=== PATIENT | female | born 1950 | race Caucasian/White ===

== ENCOUNTER 2021-10-01 14:16 | Outpatient (CLI) | payer MEDICARE, SELFPAY | END 2021-10-01 14:17 | disposition home or self-care (01) | LOC: INJ CL 14:17 | PROVIDERS: PCP Family Medicine; Visit Provider Family Medicine | DX: M17.11 Unilateral primary osteoarthritis, right knee (principal); M25.561 Pain in right knee | CPT/HCPCS: 64454 ==

== ENCOUNTER 2021-10-14 17:41 | Outpatient (REF) | payer MEDICARE, SELFPAY ==
[2021-10-14 20:12] LABS: SARS PCR* Negative SARS-CoV-2 (Negative)
== END 2021-10-14 17:42 | disposition home or self-care (01) ==
LOC: NPINS 17:41
PROVIDERS: PCP Family Medicine; Visit Provider Family Medicine
DX: Z20.822 Contact with and (suspected) exposure to COVID-19 (principal)
CPT/HCPCS: 87635

== ENCOUNTER 2021-10-15 11:56 | Outpatient (CLI) | payer MEDICARE, SELFPAY | END 2021-10-15 11:57 | disposition home or self-care (01) | LOC: INJ CL 11:57 | PROVIDERS: PCP Family Medicine; Visit Provider Family Medicine | DX: M17.11 Unilateral primary osteoarthritis, right knee (principal); G89.29 Other chronic pain; M25.561 Pain in right knee | CPT/HCPCS: 64624; J2250; J2405; J3010 ==

== ENCOUNTER 2022-07-23 14:11 | Outpatient (CLI) | payer MEDICARE, SELFPAY | END 2022-07-23 14:12 | disposition home or self-care (01) | PROVIDERS: PCP Family Medicine; Visit Provider Emergency Medicine Emergency Medical Services | DX: R06.09 Other forms of dyspnea (principal) | CPT/HCPCS: A0998 ==

== ENCOUNTER 2022-08-26 17:17 | Emergency (ER) | payer MEDICARE, SELFPAY ==
[2022-08-26 17:32] VITALS: BP 125/80; PULSE 64; RESP 18; TEMP 36.5; O2SAT 94; BMI 37.8
--- NOTE | 2022-08-26 17:57 | ED_ITS ---
HPI - General Adult General Chief complaint: Chest Pain Stated complaint: Burning in Chest Time Seen by Provider: 08/26/22 17:20 Source: patient Mode of arrival: ambulatory Limitations: no limitations History of Present Illness HPI narrative: 71-year-old female coming in today with continued chest burning. Patient was seen in the ER 5 days ago where a thorough workup was done since she was diagnosed with probable GERD and anxiety. She states that since then she has been watching which she has been eating and in the, she fine certain foods cause her symptoms to flare up and Tums cause her symptoms to improve. Today she wanted to see where her ?baseline was at? so she did not taking Tums and she felt significant chest burning that radiated up and down the entire chest and into her back. This caused her significant anxiety, she states that she got a hot flash, and so she came in for evaluation. She states that she is already feeling better. Patient states that she cannot take any PPIs because they cause depression for her. So she has been again, treating her symptoms with Tums which again, has been helping. She is also concerned because her sister had a heart attack and she presented with the initial symptoms of reflux. She believes this is likely was causing her anxiety. Her chest burning is not associated with physical activity. She denies fevers or chills. No nausea or vomiting. She is also quite concerned because she feels like she needs an upper GI, however, her doctor can see her until the end of the month. Related Data Home Medications Medication Instructions Recorded Confirmed blood sugar diagnostic (Contour #10 ea 09/09/21 09/09/21 Next Test Strips) cyanocobalamin (vitamin B-12) 1,000 mcg PO QDAY 09/09/21 09/09/21 1,000 mcg tablet hydrochlorothiazide 12.5 mg tablet 12.5 mg PO QDAY 09/09/21 09/09/21 lisinopril 20 mg tablet 20 mg PO QDAY 09/09/21 09/09/21 multivitamin (Multiple Vitamins 1 tab PO QDAY 09/09/21 09/09/21 tablet) omega-3 fatty acids 1,000 mg 1,000 mg PO QDAY 09/09/21 09/09/21 capsule Previous Rx's Medication Instructions Recorded sucralfate 1 gram tablet (Carafate) 1 g PO QID PRN #30 tabs 08/26/22 Allergies Allergy/AdvReac Type Severity Reaction Status Date / Time iodine Allergy Intermediate Hives, sob Verified 07/23/22 15:26 amoxicillin Allergy Unknown Rash Verified 07/23/22 15:26 Review of Systems Status of ROS: Reports: 10 or more systems reviewed and unremarkable except as noted in History and below [facility] Medical History Diabetes type 2, controlled ?E11.9 - Type 2 diabetes mellitus without complications (ICD-10) Abdominal hernia ?K46.9 - Unspecified abdominal hernia without obstruction or gangrene (ICD- 10) Thyroid disease ?E07.9 - Disorder of thyroid, unspecified (ICD-10) Hypertension ?I10 - Essential (primary) hypertension (ICD-10) Upper respiratory tract infection ?J06.9 - Acute upper respiratory infection, unspecified (ICD-10) Rash ?R21 - Rash and other nonspecific skin eruption (ICD-10) Surgical History H/O section ?Z98.891 - History of uterine scar from previous surgery (ICD-10) History of hernia repair ?Z98.890 - Other specified postprocedural states (ICD-10) ?Z87.19 - Personal history of other diseases of the digestive system (ICD-10) Status post intraocular lens implant ?Z96.1 - Presence of intraocular lens (ICD-10) Family History Father Throat cancer Brother Stroke Maternal Grandmother Stroke Mother Rupture, aorta Social History Smoking Status: Former smoker Do you use any of these nicotine containing products: None Second hand tobacco smoke exposure: No How often do you have a drink containing alcohol: monthly or less AUDIT-C Alcohol total score: 1 Non-prescribed substance use: denies use Exam Narrative: Exam Narrative: Well-nourished well-developed patient in no acute distress. Alert and oriented. Answers questions appropriately. Mood and affect are appropriate. Thoughts are goal oriented and rational. No tangential or magical thinking noted. Patient speaks in full sentences without needing to catch her breath. HEENT: Normocephalic atraumatic. Pupils are equally round reactive to light. Extraocular muscles are intact. Conjunctivae are moist without any icterus noted. Moist mucous membranes. Neck is soft. Cardiovascular: Heart is regular rate and rhythm S1 and S2 are present without any murmurs. Lungs: Clear to auscultation bilaterally no wheezes rhonchi or rales are appreciated. Patient takes deep breaths without any discomfort. Abdomen: Soft and nontender nondistended with normal bowel sounds. No guarding or rebound. No masses or organomegaly appreciated. Extremities: Bilateral lower extremities are without edema. Normal DP and PT pulses. Skin: Well perfused without any obvious rashes. Const: Vital Signs, click to edit/add: Vital Signs - 24 hr 08/26/22 17:32 Temperature 97.7 F Pulse Rate [Right Pulse Oximeter] 64 Respiratory Rate 18 Blood Pressure [Ri ght Upper Arm] 125/80 Pulse Oximetry 94 Oxygen Delivery Me thod Room Air Course Course Hospital Course: We did repeat an EKG today which shows normal sinus rhythm with a pulse of 66 however read by me. No significant changes from her EKG 5 days ago. We also did a point of care troponin which was within normal limits. We discussed further testing and the patient felt that it was unnecessary if the EKG and troponin were normal. Patient is quite convinced that her symptoms are due to reflux and anxiety as well. Vital Signs Vital signs: Initial Vital Signs Temperature 97.7 F 08/26/22 17:32 Temperature Source Temporal Artery Scan 08/26/22 17:32 Pulse Rate 64 08/26/22 17:32 Respiratory Rate 18 08/26/22 17:32 Blood Pressure 125/80 08/26/22 17:32 Blood Pressure Mean 95 08/26/22 17:32 Blood Pressure Position Sitting 08/26/22 17:32 Pulse Oximetry 94 08/26/22 17:32 Oxygen Delivery Method Room Air 08/26/22 17:32 Vital Signs Temperature 97.7 F 08/26/22 17:32 Pulse Rate 64 08/26/22 17:32 Respiratory Rate 18 08/26/22 17:32 Blood Pressure 125/80 08/26/22 17:32 Pulse Oximetry 94 08/26/22 17:32 Oxygen Delivery Method Room Air 08/26/22 17:32 Temperature 97.7 F 08/26/22 17:32 Pulse Rate 64 08/26/22 17:32 Respiratory Rate 18 08/26/22 17:32 Blood Pressure 125/80 08/26/22 17:32 Pulse Oximetry 94 08/26/22 17:32 Oxygen Delivery Method Room Air 08/26/22 17:32 Medical Decision Making MDM Narrative Medical decision making narrative: 71-year-old female with GERD. At this time, patient will be sent home with Carafate. She has a call in to her doctor to see if she can be seen earlier. We discussed returning to the ER for worsening symptoms that are no longer ameliorated with Tums or Carafate. Patient was in agreement and had no other questions. Medical Records Medical records reviewed: Yes I reviewed the patient's medical records ECG Data Attestation: I personally reviewed and interpreted this ECG as follows: Discharge Plan Discharge Clinical Impression: Gastroesophageal reflux disease Patient Disposition: Home, Self-Care Condition: Stable Additional Instructions: Follow-up with your primary care provider as scheduled. Start taking Carafate as needed for reflux symptoms. Would also consider a different PPI such as pantoprazole or Nexium which can be purchased [id number]. Recommend cutting down on coffee, food with citric acid such as oranges and adan, chocolate and tomatoes. Prescriptions: New sucralfate [Carafate] 1 gram tablet 1 g PO QID PRNQty: 30 0RF No Action omega-3 fatty acids 1,000 mg capsule 1,000 mg PO QDAY multivitamin [Multiple Vitamins] Tablet 1 tab PO QDAY hydrochlorothiazide 12.5 mg tablet 12.5 mg PO QDAY Patient Comments: TAKE ONE TABLET BY MOUTH ONE TIME DAILY lisinopril 20 mg tablet 20 mg PO QDAY Patient Comments: TAKE ONE TABLET BY MOUTH ONE TIME DAILY (DME) Contour Next Test Strips Strip See Rx Instructions .ROUTE .MEDSUPPLY Qty: 10 Patient Comments: use to Test 3 times per day Rx Instructions: As directed cyanocobalamin (vitamin B-12) 1,000 mcg tablet 1,000 mcg PO QDAY Patient Comments: Take 1 Tablet (1,000 mcg) by mouth once daily. Follow Up/Referrals: Eliana Guaman MD [Primary Care Provider] - Stand Alone Forms: [facility] Info Instructions
[2022-08-26 18:00] VITALS: BP 134/75; PULSE 61; RESP 16; O2SAT 96
[2022-08-26 18:18] LABS: Troponin, Point-of-Care* 0.01 ng/ml (0.01-0.04)
[2022-08-26] MEDS: SUCRALFATE 1 GM TABLET PO (18:32)
== END 2022-08-26 18:40 | disposition home or self-care (01) ==
LOC: ED 18:29
PROVIDERS: Emergency Provider Family Medicine; PCP Family Medicine
DX: K21.9 Gastro-esophageal reflux disease without esophagitis (principal)
CPT/HCPCS: 84484; 99283; 99284; A9270

== ENCOUNTER 2022-09-01 16:45 | Emergency (ER) | payer MEDICARE, SELFPAY ==
[2022-09-01 16:57] VITALS: BP 142/76; PULSE 71; RESP 16; TEMP 36.4; O2SAT 97; BMI 37.8
--- NOTE | 2022-09-01 17:30 | ED.ALLEREA ---
HPI - Allergic Reaction General Time Seen by Provider: 17:30 Date Seen: 09/01/22 Chief complaint: Allergic Reaction Stated complaint: Heartburn, trouble breathing Time Seen by Provider: 09/01/22 16:52 Source: patient, RN notes reviewed and old records reviewed Mode of arrival: ambulatory Limitations: no limitations History of Present Illness HPI narrative: Gabby is a very pleasant 71-year-old female with history of GERD, abdominal surgery with mesh, osteoarthritis of the knees who comes to the emergency room for evaluation of possible allergic reaction to Pepcid. Patient notes that the end of June she started experiencing heartburn out of the blue. Thirty years ago she had an episode where she had hard time tolerating a specific kind of soup and was told that it was heartburn. She was placed on omeprazole but discontinued because it made her feel depressed. Patient was seen in the emergency room at which time she had been started on Carafate. She notes that she saw Dr. Guaman at at the [facility] on August 28 at which time she started Pepcid. She states that yesterday she actually had some good relief. Today however she started experiencing hives on her right arm a tightness in her throat and hot flashes. She also notes that she is breathing much shallower and faster even though she is trying to do slow deep breaths. Patient thinks that she may be having an allergic reaction to the Pepcid. She also reports a stuffed up nose. She has not been exposed anyone with cough cold congestion fever or cough known COVID. Patient notes that she has not taken any medications including Benadryl today. She notes that she did have a history of low B12 and vitamin-D in the past. To her knowledge she has not had her magnesium checked. Related Data Home Medications Medication Instructions Recorded Confirmed blood sugar diagnostic (Contour #10 ea 09/09/21 09/09/21 Next Test Strips) cyanocobalamin (vitamin B-12) 1,000 mcg PO QDAY 09/09/21 09/09/21 1,000 mcg tablet hydrochlorothiazide 12.5 mg tablet 12.5 mg PO QDAY 09/09/21 09/09/21 lisinopril 20 mg tablet 20 mg PO QDAY 09/09/21 09/09/21 multivitamin (Multiple Vitamins 1 tab PO QDAY 09/09/21 09/09/21 tablet) omega-3 fatty acids 1,000 mg 1,000 mg PO QDAY 09/09/21 09/09/21 capsule Previous Rx's Medication Instructions Recorded sucralfate 1 gram tablet (Carafate) 1 g PO QID PRN #30 tabs 08/26/22 Allergies Allergy/AdvReac Type Severity Reaction Status Date / Time iodine Allergy Intermediate Hives, sob Verified 07/23/22 15:26 amoxicillin Allergy Unknown Rash Verified 07/23/22 15:26 Review of Systems Status of ROS Reports: 10 or more systems reviewed and unremarkable except as noted in History and below Const Denies: fever or chills ENMT Reports: throat pain (Throat feels tight); Denies: difficulty swallowing or hoarseness Cardio Reports: shortness of breath with exertion; Denies: chest pain or swelling of feet/ankles Resp Reports: shortness of breath; Denies: cough GI Reports: abdominal pain and heartburn; Denies: vomiting or difficulty swallowing Denies: painful urination Integ/Breast Reports: redness and sores (Right arm) Neuro Denies: numbness in extremities PFSH PFS Medical History Diabetes type 2, controlled ?E11.9 - Type 2 diabetes mellitus without complications (ICD-10) Abdominal hernia ?K46.9 - Unspecified abdominal hernia without obstruction or gangrene (ICD-10) Thyroid disease ?E07.9 - Disorder of thyroid, unspecified (ICD-10) Hypertension ?I10 - Essential (primary) hypertension (ICD-10) Upper respiratory tract infection ?J06.9 - Acute upper respiratory infection, unspecified (ICD-10) Rash ?R21 - Rash and other nonspecific skin eruption (ICD-10) Surgical History H/O section ?Z98.891 - History of uterine scar from previous surgery (ICD-10) History of hernia repair ?Z98.890 - Other specified postprocedural states (ICD-10) ?Z87.19 - Personal history of other diseases of the digestive system (ICD-10) Status post intraocular lens implant ?Z96.1 - Presence of intraocular lens (ICD-10) Family History Father Throat cancer Brother Stroke Maternal Grandmother Stroke Mother Rupture, aorta Social History Smoking Status: Former smoker Do you use any of these nicotine containing products: None Second hand tobacco smoke exposure: No How often do you have a drink containing alcohol: never AUDIT-C Alcohol total score: 0 Non-prescribed substance use: denies use service: No Exam Narrative: Exam Narrative: Patient is alert and oriented very well-spoken woman. No acute distress. External ears eyes nose clear. Nose without rhinitis. Lips are not swollen. Oral cavity shows some mild erythema in the posterior oropharynx. Neck is supple without lymphadenopathy. No evidence of edema. Heart with regular rate and rhythm without murmur or rub. Lungs are clear bilaterally. Abdomen is soft. She has a few discrete small pea-sized on nodule that is mobile. On the left side of her abdomen. Otherwise no significant discomfort. Lower extremities with healing superficial scratch. No evidence of erythema. She has mild erythema in a v-shaped fashion on her neck. Erythema on her arms follow where her sleeve falls. This is the dorsum of the forearms. There are at least half a dozen discrete little areas of raised erythema. No purulent drainage. Const: Vital Signs, click to edit/add: Vital Signs - 24 hr 09/01/22 16:57 09/01/22 18:40 Temperature 97.6 F Pulse Rate [Left P ulse Oximeter] 71 65 Respiratory Rate 16 16 Blood Pressure [Ri ght Upper Arm] 142/76 H 132/82 Pulse Oximetry 97 97 Oxygen Delivery Me thod Room Air Room Air Documenting provider has reviewed patient's vital signs: yes Course Course Hospital Course: Who patient has had ED visits as well as primary care visits for ongoing symptoms of GERD. Patient is noting that this was rather sudden in onset and that she really has not had relief with Carafate an notes while she had a good day yesterday after initiating Pepcid today she feels like she may be having an allergic reaction. I am not seeing that she is suffering anaphylaxis and the lesions on her arm do not appear to be hives but rather have the appearance of small bug bites. These are on exposed areas only. I do think that a recheck of an EKG, troponin as well as CBC and basic panel would be helpful. I would also check a vitamin-D and magnesium level as she has had low vitamin-D in the past. Reevaluation(s) Reevaluation #1: Patient noted to have magnesium of 1.9. We did discuss magnesium and the use of a PPI. Patient had notes PPI caused depression in the past. I wonder if perhaps this is because of low D and magnesium secondary to poor absorption. Did offer to start omeprazole may need him tonight and patient is declining at this time. She also states that while am not convinced that Pepcid is the cause of her symptoms she is. Of note patient had only been taking Pepcid once a day and of course this is a b.i.d. medication. Vital Signs Vital signs: Initial Vital Signs Temperature 97.6 F 09/01/22 16:57 Temperature Source Temporal Artery Scan 09/01/22 16:57 Pulse Rate 71 09/01/22 16:57 Pulse Rhythm Regular 09/01/22 16:57 Respiratory Rate 16 09/01/22 16:57 Blood Pressure 142/76 H 09/01/22 16:57 Blood Pressure Mean 98 09/01/22 16:57 Blood Pressure Position Sitting 09/01/22 16:57 Pulse Oximetry 97 09/01/22 16:57 Oxygen Delivery Method Room Air 09/01/22 16:57 Vital Signs Temperature 97.6 F 09/01/22 16:57 Pulse Rate 71 09/01/22 16:57 Respiratory Rate 16 09/01/22 16:57 Blood Pressure 142/76 H 09/01/22 16:57 Pulse Oximetry 97 09/01/22 16:57 Oxygen Delivery Method Room Air 09/01/22 16:57 Temperature 97.6 F 09/01/22 16:57 Pulse Rate 65 09/01/22 18:40 Respiratory Rate 16 09/01/22 18:40 Blood Pressure 132/82 09/01/22 18:40 Pulse Oximetry 97 09/01/22 18:40 Oxygen Delivery Method Room Air 09/01/22 18:40 MDM - Allergic Reaction MDM Narrative Medical decision making narrative: 1. GERD -cannot explain the sudden onset of this. She certainly could have underlying gastritis or some sort of gastric outlet delay. Patient does have appointment with Dr. Becker. She may need endoscopy to visualize esophagus as well. I do not note hiatal hernia on the chest x-ray from previous visit. I did suggest switching to omeprazole with magnesium but patient is declining that is well. I worry that she will have increase of symptoms. I did speak about the use of Maalox or Gallardo of magnesium. 2. Anxiety -I do think that anxiety is playing into some of the patient's symptoms. I would suggest follow-up with her primary MD. 3. Suspect bug bites-area on the right arm does not appear to be hives to me. 4. Disposition-home at this time. Recommend follow-up with primary MD. Return to the emergency room as needed. Medical Records Attestation: I reviewed the patient's medical records. Lab Data Attestation: I reviewed the patient's lab results. Labs: Lab Results 09/01/22 09/01/22 09/01/22 Range/Units 18:20 18:35 18:40 WBC (4.50-11.00) K/uL RBC (4.00-5.20) m/uL Hgb (12.0-16.0) gm/dL Hct (33.0-51.0) % MCV (80-100) fL MCH (26-34) pg MCHC (32-36) gm/dL RDW Coeff of Sabrina (11.5-15.5) % Plt Count (140-440) K/uL Neut % (Auto) (42.0-72.0) % Lymph % (Auto) (20-44) % Harmon % (Auto) (0.0-11.0) % Eos % (Auto) (0.0-7.0) % Baso % (Auto) (0.0-3.0) % Neut # (Auto) (1.7-7.0) K/uL Lymph # (Auto) (0.90-2.90) K/uL Harmon # (Auto) (0.00-0.90) K/UL Eos # (Auto) (0.00-0.50) K/uL Baso # (Auto) (0.00-0.30) K/uL Abs Immat Gran (auto) (0.00-0.30) K/uL Imm/Tot Granulo (auto) % Sodium 137 (135-149) mmol/L Potassium 3.7 (3.6-5.1) mmol/L Chloride 98 (96-114) mmol/L Carbon Dioxide 30 (20-32) mmol/L BUN 16 (7-30) mg/dL Creatinine 0.7 (0.5-1.5) mg/dL Estimated Creat Clear 39.50 Estimated GFR 93 ml/min Glucose 123 H (60-115) mg/dL Calcium 9.8 (8.4-10.6) mg/dL Magnesium 1.9 (1.5-2.6) mg/dL C-Reactive Protein < 0.5 L (0.5-1.0) mg/dL SARS-CoV-2 (PCR) Negative SARS-CoV-2 (Negative) Group A Strep DNA NOT DETECTED (Not Detectd) POC Troponin I 0.00 L (0.01-0.04) ng/ml 09/01/22 Range/Units 18:48 WBC 8.53 (4.50-11.00) K/uL RBC 5.03 (4.00-5.20) m/uL Hgb 14.6 (12.0-16.0) gm/dL Hct 44.5 (33.0-51.0) % MCV 89 (80-100) fL MCH 29 (26-34) pg MCHC 33 (32-36) gm/dL RDW Coeff of Sabrina 13.1 (11.5-15.5) % Plt Count 266 (140-440) K/uL Neut % (Auto) 69.6 (42.0-72.0) % Lymph % (Auto) 22.3 (20-44) % Harmon % (Auto) 7.2 (0.0-11.0) % Eos % (Auto) 0.6 (0.0-7.0) % Baso % (Auto) 0.2 (0.0-3.0) % Neut # (Auto) 5.94 (1.7-7.0) K/uL Lymph # (Auto) 1.90 (0.90-2.90) K/uL Harmon # (Auto) 0.60 (0.00-0.90) K/UL Eos # (Auto) 0.05 (0.00-0.50) K/uL Baso # (Auto) 0.02 (0.00-0.30) K/uL Abs Immat Gran (auto) 0.01 (0.00-0.30) K/uL Imm/Tot Granulo (auto) 0.1 % Sodium (135-149) mmol/L Potassium (3.6-5.1) mmol/L Chloride (96-114) mmol/L Carbon Dioxide (20-32) mmol/L BUN (7-30) mg/dL Creatinine (0.5-1.5) mg/dL Estimated Creat Clear Estimated GFR ml/min Glucose (60-115) mg/dL Calcium (8.4-10.6) mg/dL Magnesium (1.5-2.6) mg/dL C-Reactive Protein (0.5-1.0) mg/dL SARS-CoV-2 (PCR) (Negative) Group A Strep DNA (Not Detectd) POC Troponin I (0.01-0.04) ng/ml ECG Data Attestation: I personally reviewed and interpreted this ECG as follows: Interpretation: EKG by my read shows sinus rhythm at a rate of 62. Normal QT and TX intervals. EKG compared to June 2022 is unchanged. Discharge Plan Discharge Clinical Impression: Hot flashes Acid reflux Qualifiers: Esophagitis presence: esophagitis presence not specified Qualified Code(s): K21.9 - Gastro-esophageal reflux disease without esophagitis Patient Disposition: Home, Self-Care Condition: Improved Additional Instructions: If you would like to try I proton pump inhibitor you may try omeprazole or another brand such as Nexium or pantoprazole. In your particular case I think that the [id number] dosing of 1 tablet daily would be sufficient. I would recommend use of magnesium glycinate 300-400 mg daily. I will often break this up into 2 tablets at night and 1 tablet in the morning. Follow-up as scheduled with the surgeon or your primary MD. EKG today and heart chest reassuring. You have tested negative for COVID and strep. Your white count and hemoglobin are normal. Your electrolyte panel to include sodium potassium are normal. Your kidney function is normal. Your calcium is normal today. Your magnesium is technically normal at 1.9 but I do think that you would help how you feel with magnesium replacement. Talk to your primary MD about that. Prescriptions: No Action omega-3 fatty acids 1,000 mg capsule 1,000 mg PO QDAY multivitamin [Multiple Vitamins] Tablet 1 tab PO QDAY hydrochlorothiazide 12.5 mg tablet 12.5 mg PO QDAY Patient Comments: TAKE ONE TABLET BY MOUTH ONE TIME DAILY lisinopril 20 mg tablet 20 mg PO QDAY Patient Comments: TAKE ONE TABLET BY MOUTH ONE TIME DAILY (DME) Contour Next Test Strips Strip See Rx Instructions .ROUTE .MEDSUPPLY Qty: 10 Patient Comments: use to Test 3 times per day Rx Instructions: As directed cyanocobalamin (vitamin B-12) 1,000 mcg tablet 1,000 mcg PO QDAY Patient Comments: Take 1 Tablet (1,000 mcg) by mouth once daily. sucralfate [Carafate] 1 gram tablet 1 g PO QID PRNQty: 30 0RF Follow Up/Referrals: Eliana Guaman MD [Primary Care Provider] - Stand Alone Forms: [facility] Info Instructions
[2022-09-01 18:40] VITALS: BP 132/82; PULSE 65; RESP 16; O2SAT 97
[2022-09-01 19:08] LABS: Blood Urea Nitrogen* 16 mg/dL (7-30); Calcium* 9.8 mg/dL (8.4-10.6); Carbon Dioxide* 30 mmol/L (20-32); Chloride* 98 mmol/L (96-114); Creatinine* 0.7 mg/dL (0.5-1.5); Estimated Glomerular Filt Rate 93 ml/min; Glucose* 123 mg/dL (60-115); Magnesium* 1.9 mg/dL (1.5-2.6); Potassium* 3.7 mmol/L (3.6-5.1); Sodium* 137 mmol/L (135-149)
[2022-09-01 19:08] LABS: Basophils Absolute Auto 0.02 K/uL (0.00-0.30); Basophils Percent Auto 0.2 % (0.0-3.0); Eosinophils Absolute Auto 0.05 K/uL (0.00-0.50); Eosinophils Percent Auto 0.6 % (0.0-7.0); Hematocrit 44.5 % (33.0-51.0); Hemoglobin* 14.6 gm/dL (12.0-16.0); Immature Granulocytes Abs Auto 0.01 K/uL (0.00-0.30); Immature Granulocytes Pct Auto 0.1 %; Lymphocytes Percent Auto 22.3 % (20-44); Mean Corpuscular HGB Conc 33 gm/dL (32-36); Mean Corpuscular Hemoglobin 29 pg (26-34); Mean Corpuscular Volume 89 fL (80-100); Monocytes Percent Auto 7.2 % (0.0-11.0); Neutrophils Absolute Auto 5.94 K/uL (1.7-7.0); Neutrophils Percent Auto 69.6 % (42.0-72.0); Platelet Count* 266 K/uL (140-440); RDW Coefficient of Variation % 13.1 % (11.5-15.5); Red Blood Count 5.03 m/uL (4.00-5.20); White Blood Count* 8.53 K/uL (4.50-11.00)
[2022-09-01 19:10] LABS: C Reactive Protein* < 0.5 mg/dL (0.5-1.0)
[2022-09-01 19:12] LABS: Slide Review Reflex No
[2022-09-01 19:21] LABS: SARS PCR* Negative SARS-CoV-2 (Negative)
[2022-09-01 19:49] LABS: Vitamin D 25 Hydroxy* 48 ng/mL (30-80)
[2022-09-02 00:03] LABS: Strep A DNA Probe* NOT DETECTED (Not Detectd)
== END 2022-09-01 20:03 | disposition home or self-care (01) ==
PROVIDERS: Emergency Provider Family Medicine; PCP Family Medicine
DX: K21.9 Gastro-esophageal reflux disease without esophagitis (principal); N95.1 Menopausal and female climacteric states; F41.9 Anxiety disorder, unspecified
CPT/HCPCS: 36415; 80048; 82306; 82652; 83735; 84484; 85025; 86140; 87635; 87651; 93005; 99284; 99285

== ENCOUNTER 2022-09-12 13:17 | Outpatient (CLI) | payer MEDICARE, SELFPAY | END 2022-09-12 13:18 | disposition home or self-care (01) | LOC: NFLDUCREF 13:17 | PROVIDERS: PCP Family Medicine; Visit Provider Nurse Practitioner Family | DX: J02.9 Acute pharyngitis, unspecified (principal) | CPT/HCPCS: 87070 ==

== ENCOUNTER 2022-09-18 06:18 | Outpatient (CLI) | payer MEDICARE, SELFPAY ==
--- NOTE | 2022-09-18 08:33 | W.ANESCHARGE ---
Anesthesia Charges Start Date/Time Anesthesia Start Date: 09/18/22 Anesthesia Start Time: 08:10 Stop Date/Time Anesthesia Stop Date: 09/18/22 Anesthesia Stop Time: 08:30
--- NOTE | 2022-09-18 08:41 | W.ANESCHARGE ---
Anesthesia Charges Start Date/Time Anesthesia Start Date: 09/18/22 Anesthesia Start Time: 08:10 Stop Date/Time Anesthesia Stop Date: 09/18/22 Anesthesia Stop Time: 08:30 Summary Extremes of Age - Over 70 or under 1: MDA
== END 2022-09-18 06:19 | disposition home or self-care (01) ==
LOC: OP CLINIC 06:20
PROVIDERS: PCP Family Medicine; Visit Provider Surgery
DX: K21.9 Gastro-esophageal reflux disease without esophagitis (principal); K31.7 Polyp of stomach and duodenum
CPT/HCPCS: 43239; 731; 88342; 99100; J2704

== ENCOUNTER 2022-09-26 10:41 | Outpatient (CLI) | payer MEDICARE, SELFPAY ==
--- NOTE | 2022-09-26 11:15 | CRLHL7_ITS ---
For Patients: As a result of the Century Cures Act, medical imaging exams and procedure reports are released immediately into your electronic medical record. You may view this report before your referring provider. If you have questions, please contact your health care provider. Technique: Double-contrast esophagram performed after the uneventful administration of effervescent crystals and thick barium followed by thick barium. Fluoroscopy time 78 seconds. Indication: Hiatal hernia Comparison: None. Findings: There is a 2.1 cm sliding hiatal hernia. No obstruction or achalasia. No ulcer. Tertiary contractions noted involving the mid and distal esophagus. Spontaneous reflux to the midesophagus. Decreased esophageal motility. Impression: 2.1 cm sliding hiatal hernia. Spontaneous reflux with reflux esophagitis involving the mid and distal esophagus. Dictated by Smith Rivera MD @ 09/26/2022 11:54:42 AM (Electronically Signed)
== END 2022-09-26 10:42 | disposition home or self-care (01) ==
LOC: RAD 10:43
PROVIDERS: PCP Family Medicine; Visit Provider Specialist
DX: K44.9 Diaphragmatic hernia without obstruction or gangrene (principal); K21.00 Gastro-esophageal reflux disease with esophagitis, without bleeding
CPT/HCPCS: 74221

== ENCOUNTER 2022-10-25 14:36 | Emergency (ER) | payer MEDICARE, SELFPAY ==
[2022-10-25 14:52] VITALS: BP 125/82; PULSE 60; RESP 18; TEMP 35.9; O2SAT 97; BMI 37.8
--- NOTE | 2022-10-25 15:18 | CRLHL7_ITS ---
For Patients: As a result of the Century Cures Act, medical imaging exams and procedure reports are released immediately into your electronic medical record. You may view this report before your referring provider. If you have questions, please contact your health care provider. INDICATION: Chest pain. Post Sanchez capsule. COMPARISON: None. Findings/Impression: PA and lateral views of the chest were obtained. The cardiac silhouette and pulmonary vasculature are within normal limits. The lungs are clear of acute infiltrates. 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 Dictated by Brant Briggs MD @ 10/25/2022 4:13:36 PM (Electronically Signed)
--- NOTE | 2022-10-25 16:04 | ED_ITS ---
HPI - General Adult General Chief complaint: Chest Pain Stated complaint: post Sanchez procedure, sensor becoming more painful Time Seen by Provider: 10/25/22 14:43 Source: patient Mode of arrival: ambulatory Limitations: no limitations History of Present Illness HPI narrative: 71-year-old female coming in today complaining of chest pain for couple of days. Patient had a Sanchez sensor placed last Thursday. She has been feeling the sensation that she is swallowing over a lump every day since. However last night the discomfort was increased and she had a lot of reflux and burning sensation in her chest which is common for her given the fact that she has been fighting reflux symptoms now for a few months. She states that she has been dealing with her symptoms with aloe vera juice, baking soda and almond milk. Took all of her remedies yesterday and it did help her symptoms. She comes in today because she wants to know where that sensor is. She was told that it would fall off in 5-10 days. She is on day 4. She is not having any fevers or chills. No vomiting. She is able to drink and eat food although she has to the to more thoroughly than she is used to. She is not having any diarrhea. She is not having pain unless she is swallowing. No vomiting, no blood in her sputum. Related Data Home Medications Medication Instructions Recorded Confirmed blood sugar diagnostic (Contour #10 ea 09/09/21 09/12/22 Next Test Strips) cyanocobalamin (vitamin B-12) 1,000 mcg PO QDAY 09/09/21 09/12/22 1,000 mcg tablet hydrochlorothiazide 12.5 mg tablet 12.5 mg PO QDAY 09/09/21 09/12/22 lisinopril 20 mg tablet 20 mg PO QDAY 09/09/21 09/12/22 multivitamin (Multiple Vitamins 1 tab PO QDAY 09/09/21 09/12/22 tablet) omega-3 fatty acids 1,000 mg 1,000 mg PO QDAY 09/09/21 09/12/22 capsule Allergies Allergy/AdvReac Type Severity Reaction Status Date / Time amoxicillin Allergy Unknown Rash Verified 10/25/22 14:59 Iodinated Contrast Media Allergy hives Verified 10/25/22 14:59 Review of Systems Status of ROS: Reports: 10 or more systems reviewed and unremarkable except as noted in History and below PFSH PFSH Medical History Sore throat ?J02.9 - Acute pharyngitis, unspecified (ICD-10) Diabetes type 2, controlled ?E11.9 - Type 2 diabetes mellitus without complications (ICD-10) Abdominal hernia ?K46.9 - Unspecified abdominal hernia without obstruction or gangrene (ICD- 10) Thyroid disease ?E07.9 - Disorder of thyroid, unspecified (ICD-10) Hypertension ?I10 - Essential (primary) hypertension (ICD-10) Upper respiratory tract infection ?J06.9 - Acute upper respiratory infection, unspecified (ICD-10) Rash ?R21 - Rash and other nonspecific skin eruption (ICD-10) Surgical History H/O section ?Z98.891 - History of uterine scar from previous surgery (ICD-10) History of hernia repair ?Z98.890 - Other specified postprocedural states (ICD-10) ?Z87.19 - Personal history of other diseases of the digestive system (ICD-10) Status post intraocular lens implant ?Z96.1 - Presence of intraocular lens (ICD-10) Family History Father Throat cancer Brother Stroke Maternal Grandmother Stroke Mother Rupture, aorta Social History Smoking Status: Former smoker Do you use any of these nicotine containing products: None Second hand tobacco smoke exposure: No How often do you have a drink containing alcohol: never AUDIT-C Alcohol total score: 0 Non-prescribed substance use: denies use service: No Exam Narrative: Exam Narrative: Well-nourished well-developed patient in no acute distress. Alert and oriented. Answers questions appropriately. Mood and affect are appropriate. Thoughts are goal oriented and rational. No tangential or magical thinking noted. Patient speaks in full sentences without needing to catch her breath. Voice sounds normal. No hoarseness is appreciated. HEENT: Normocephalic atraumatic. Pupils are equally round reactive to light. Extraocular muscles are intact. Conjunctivae are moist without any icterus noted. Moist mucous membranes. Posterior pharynx is normal. Neck is soft without any lymphadenopathy or thyromegaly. No masses are appreciated. Cardiovascular: Heart is regular rate and rhythm S1 and S2 are present without any murmurs. Lungs: Clear to auscultation bilaterally no wheezes rhonchi or rales are appreciated. Patient takes deep breaths without any discomfort. Abdomen: Soft and nontender nondistended with normal bowel sounds. Skin: Well perfused without any obvious rashes. Const: Vital Signs, click to edit/add: Vital Signs - 24 hr 10/25/22 14:52 Temperature 96.7 F L Pulse Rate [Left P ulse Oximeter] 60 Respiratory Rate 18 Blood Pressure [Ri ght Upper Arm] 125/82 Pulse Oximetry 97 Oxygen Delivery Me thod Room Air Course Course Hospital Course: We did proceed with a two view chest x-ray which, read by me, shows the center in place center of the chest within the esophagus. Vital Signs Vital signs: Initial Vital Signs Temperature 96.7 F L 10/25/22 14:52 Temperature Source Tympanic 10/25/22 14:52 Pulse Rate 60 10/25/22 14:52 Respiratory Rate 18 10/25/22 14:52 Blood Pressure 125/82 10/25/22 14:52 Blood Pressure Mean 96 10/25/22 14:52 Blood Pressure Position Sitting 10/25/22 14:52 Pulse Oximetry 97 10/25/22 14:52 Oxygen Delivery Method Room Air 10/25/22 14:52 Vital Signs Temperature 96.7 F L 10/25/22 14:52 Pulse Rate 60 10/25/22 14:52 Respiratory Rate 18 10/25/22 14:52 Blood Pressure 125/82 10/25/22 14:52 Pulse Oximetry 97 10/25/22 14:52 Oxygen Delivery Method Room Air 10/25/22 14:52 Temperature 96.7 F L 10/25/22 14:52 Pulse Rate 60 10/25/22 14:52 Respiratory Rate 18 10/25/22 14:52 Blood Pressure 125/82 10/25/22 14:52 Pulse Oximetry 97 10/25/22 14:52 Oxygen Delivery Method Room Air 10/25/22 14:52 Medical Decision Making MDM Narrative Medical decision making narrative: Patient is given a printout of her chest x-ray, this does seem to reassure. She states that if she continues to have discomfort she will talk to [place] [facility] and have a since removed. She states that she already has an appointment to do this next Thursday if necessary. Imaging Data Chest x-ray: Attestation: I have reviewed the pertinent imaging results. Radiologist's impression: Study:?XRay Chest 2V-10/25/2022 3:39:20 PM Ordering Physician:Nancy Fernández Final Report: INDICATION: Chest pain. Post Sanchez capsule. COMPARISON: None. Findings/Impression: PA and lateral views of the chest were obtained. The cardiac silhouette and pulmonary vasculature are within normal limits. The lungs are clear of acute infiltrates. 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 Discharge Plan Discharge Clinical Impression: Atypical chest pain Patient Disposition: Home, Self-Care Condition: Stable Additional Instructions: Follow-up with [employer] developer for Sanchez censor removal. Prescriptions: No Action omega-3 fatty acids 1,000 mg capsule 1,000 mg PO QDAY multivitamin [Multiple Vitamins] Tablet 1 tab PO QDAY hydrochlorothiazide 12.5 mg tablet 12.5 mg PO QDAY Patient Comments: TAKE ONE TABLET BY MOUTH ONE TIME DAILY lisinopril 20 mg tablet 20 mg PO QDAY Patient Comments: TAKE ONE TABLET BY MOUTH ONE TIME DAILY (DME) Contour Next Test Strips Strip See Rx Instructions .ROUTE .MEDSUPPLY Qty: 10 Patient Comments: use to Test 3 times per day Rx Instructions: As directed cyanocobalamin (vitamin B-12) 1,000 mcg tablet 1,000 mcg PO QDAY Patient Comments: Take 1 Tablet (1,000 mcg) by mouth once daily. Follow Up/Referrals: Eliana Guaman MD [Primary Care Provider] - Stand Alone Forms: [employer] Info Instructions
== END 2022-10-25 16:12 | disposition home or self-care (01) ==
PROVIDERS: Emergency Provider Family Medicine; PCP Family Medicine
DX: R07.89 Other chest pain (principal)
CPT/HCPCS: 71046; 99283; 99284

== ENCOUNTER 2022-12-09 16:00 | Emergency (ER) | payer MEDICARE, SELFPAY ==
[2022-12-09] VITALS (18 sets, daily range): BP systolic 160–180; BP diastolic 80–103; PULSE 59–106; RESP 18; TEMP 36.4; O2SAT 91–99; BMI 35.5
--- NOTE | 2022-12-09 16:22 | CRLHL7_ITS ---
For Patients: As a result of the Cures Act, medical imaging exams and procedure reports are released immediately into your electronic medical record. You may view this report before your referring provider. If you have questions, please contact your health care provider. INDICATION: Short of breath, pain left shoulder blade COMPARISON: 11/14/2022 TECHNIQUE: 1 view chest radiograph. FINDINGS: The lungs are well expanded. No focal consolidations. Minimal scarring left base. No pulmonary edema. No pleural effusion. No pneumothorax. No pneumomediastinum. Normal cardiomediastinal silhouette. Bones: Normal for age. IMPRESSION: Lungs clear. No acute finding. Dictated by Lucero Hanson MD @ 12/09/2022 4:59:49 PM (Electronically Signed)
--- NOTE | 2022-12-09 16:29 | ED.GENADULT ---
HPI - General Adult General Date Seen: 12/09/22 Chief complaint: Shortness of Breath/Dyspnea Stated complaint: Pain under her shoulder, shortness of breath Time Seen by Provider: 12/09/22 16:08 Source: patient Mode of arrival: ambulatory Limitations: no limitations History of Present Illness HPI narrative: Patient is a 72-year-old woman who comes in saying that she has had pain by her left shoulder blade for 2 days associated with shortness of breath. Pain is not pleuritic nor is it worsened by motion. She says she tried to call and make an appoint with her primary doctor but could not be seen. She went to her chiropractor who told her that 1 of her left ribs was out of place and popped it back into place, but she says that her chiropractor told her that could affect her heart and she needed to go get her heart checked out. She has been coughing up some green phlegm for about a month, she says she was seen in urgent care and they felt it was viral. She feels that it is related to her gallbladder. She also says that gallbladder symptoms can include pain underneath the left rib cage. She is adamant that she is read this on [employer] and is fairly sure that at least some for symptoms are related to her gallbladder. She has not had nausea or vomiting. She said she had a fever yesterday, did not check her temperature but said she felt hot and cold. She has not had chest pain. She had a Manoj fundoplication on November 28. She has not had lower extremity swelling or pain. She has not had significant abdominal pain. She does not smoke. She notes allergies to amoxicillin and contrast dye. No history of DVT or PE, no anticoagulation. Related Data Home Medications Medication Instructions Recorded Confirmed blood sugar diagnostic (Contour #10 ea 09/09/21 11/14/22 Next Test Strips) cyanocobalamin (vitamin B-12) 1,000 mcg PO QDAY 09/09/21 11/14/22 1,000 mcg tablet hydrochlorothiazide 12.5 mg tablet 12.5 mg PO QDAY 09/09/21 11/14/22 lisinopril 20 mg tablet 20 mg PO QDAY 09/09/21 11/14/22 multivitamin (Multiple Vitamins 1 tab PO QDAY 09/09/21 11/14/22 tablet) omega-3 fatty acids 1,000 mg 1,000 mg PO QDAY 09/09/21 11/14/22 capsule Previous Rx's Medication Instructions Recorded azithromycin 250 mg tablet See Rx Instructions PO .COMPLEX #6 11/22/22 tabs lidocaine 5 % topical patch 1 patch topical DAILY #15 ea 12/09/22 Allergies Allergy/AdvReac Type Severity Reaction Status Date / Time amoxicillin Allergy Unknown Rash Verified 11/14/22 13:55 Iodinated Contrast Media Allergy hives Verified 11/14/22 13:55 Review of Systems Status of ROS: Reports: 6 or more systems reviewed and unremarkable except as noted in History and below [facility] Medical History Sore throat ?J02.9 - Acute pharyngitis, unspecified (ICD-10) Diabetes type 2, controlled ?E11.9 - Type 2 diabetes mellitus without complications (ICD-10) Abdominal hernia ?K46.9 - Unspecified abdominal hernia without obstruction or gangrene (ICD-10) Thyroid disease ?E07.9 - Disorder of thyroid, unspecified (ICD-10) Hypertension ?I10 - Essential (primary) hypertension (ICD-10) Upper respiratory tract infection ?J06.9 - Acute upper respiratory infection, unspecified (ICD-10) Rash ?R21 - Rash and other nonspecific skin eruption (ICD-10) Surgical History H/O section ?Z98.891 - History of uterine scar from previous surgery (ICD-10) History of hernia repair ?Z98.890 - Other specified postprocedural states (ICD-10) ?Z87.19 - Personal history of other diseases of the digestive system (ICD-10) Status post intraocular lens implant ?Z96.1 - Presence of intraocular lens (ICD-10) Family History Father Throat cancer Brother Stroke Maternal Grandmother Stroke Mother Rupture, aorta Social History Smoking Status: Former smoker Do you use any of these nicotine containing products: None Second hand tobacco smoke exposure: Yes How often do you have a drink containing alcohol: never How often do you have six or more drinks on one occasion: Never AUDIT-C Alcohol total score: 0 Non-prescribed substance use: denies use service: No Exam Narrative: Exam Narrative: Vital signs as noted above. In general, an alert, nontoxic woman, breathing easily. Head: Normocephalic, atraumatic. Eyes: Pupils are equal reactive. Extraocular movements are full. Conjunctivae are normal. ENT: Mucous membranes are moist. Throat is normal. Neck: Supple without lymphadenopathy. Heart: Regular rate and rhythm. No murmur or rub. Lungs: Clear bilaterally. No increased work of breathing, crackles or wheezes. No pain to palpation. Abdomen: Soft and nontender. Extremities: Well perfused. No edema. No calf tenderness. Pulses intact. Neurologic: Patient is alert and oriented to person and place. Speech is fluent. Face is symmetric. Moves all extremities equally. Affect: Anxious. Skin: Warm and dry. Well perfused. Const: Vital Signs, click to edit/add: Vital Signs - 24 hr 12/09/22 16:08 12/09/22 16:22 12/09/22 16:23 Temperature 97.5 F L Pulse Rate Pulse Rate [Right Pulse Oximeter] 106 H 63 Respiratory Rate 18 Blood Pressure Blood Pressure [Le ft Upper Arm] 174/103 H 160/80 H Pulse Oximetry 96 96 97 Oxygen Delivery Me thod Room Air Room Air 12/09/22 16:59 12/09/22 17:00 12/09/22 17:15 Temperature Pulse Rate 62 64 66 Pulse Rate [Right Pulse Oximeter] Respiratory Rate Blood Pressure Blood Pressure [Le ft Upper Arm] Pulse Oximetry 96 97 98 Oxygen Delivery Me thod 12/09/22 18:16 12/09/22 18:17 12/09/22 18:18 Temperature Pulse Rate 62 61 Pulse Rate [Right Pulse Oximeter] Respiratory Rate Blood Pressure 162/88 H Blood Pressure [Le ft Upper Arm] Pulse Oximetry 97 99 96 Oxygen Delivery Me thod 12/09/22 18:30 12/09/22 18:45 12/09/22 19:00 Temperature Pulse Rate 64 64 60 Pulse Rate [Right Pulse Oximeter] Respiratory Rate Blood Pressure Blood Pressure [Le ft Upper Arm] Pulse Oximetry 95 94 97 Oxygen Delivery Me thod 12/09/22 19:27 12/09/22 19:30 12/09/22 19:45 Temperature Pulse Rate 62 60 59 L Pulse Rate [Right Pulse Oximeter] Respiratory Rate Blood Pressure Blood Pressure [Le ft Upper Arm] Pulse Oximetry 97 97 91 Oxygen Delivery Me thod Documenting provider has reviewed patient's vital signs: yes Course Course ED Course: Will assess fairly broadly for cause of her symptoms. She is afebrile here, nontoxic. She is very concerned about her blood pressure being elevated. I am going to give her some morphine as well as a 0.5 mg of Ativan and a L of normal saline. Given her contrast allergy am going to start with a D-dimer. Diagnostic considerations include pneumonia, pneumothorax, pulmonary embolism, acute coronary syndrome, postoperative complication such as infection, perforated viscus, dissection. Biliary pathology is not entirely ruled out although a little less likely given she does not have any abdominal pain or GI symptoms. Labs are really quite unremarkable, white blood cell count is normal at 8.3, hemoglobin normal. Metabolic panel and LFTs are within normal limits, CRP is 0.8, BNP is 40. Lipase 32. UA negative. COVID was negative. X-ray by my review was unremarkable, read as negative by Radiology as well. I did do a D-dimer, this returned at 0.8, just very minimally elevated relative to age. I discussed this finding with her and the pros and cons of doing a CT scan of the chest. She does have a contrast allergy but says she has done well with pretreatment and has not had a reaction for decades. She did prefer to go forward with the CT of the chest. On my review I do not see evidence of pulmonary embolism, pneumothorax, effusion or consolidation. Waiting for formal radiology read. CT read is negative for pulmonary embolism or other acute findings. Patient says she actually feels great now, she thinks the chiropractor must have fix things by popping rib back in place, pain is resolved. She is comfortable with discharge. She can use Tylenol as needed, I prescribed some lidocaine patches as well. Return for worsening or acute new symptoms such as fever, vomiting, significant shortness of breath etcetera. Otherwise, primary care follow-up in the next week for recheck. Vital Signs Vital signs: Initial Vital Signs Temperature 97.5 F L 12/09/22 16:08 Temperature Source Temporal Artery Scan 12/09/22 16:08 Pulse Rate 106 H 12/09/22 16:08 Respiratory Rate 18 12/09/22 16:08 Blood Pressure 174/103 H 12/09/22 16:08 Blood Pressure Mean 126 H 12/09/22 16:08 Blood Pressure Position Sitting 12/09/22 16:08 Pulse Oximetry 96 12/09/22 16:08 Oxygen Delivery Method Room Air 12/09/22 16:08 Vital Signs Temperature 97.5 F L 12/09/22 16:08 Pulse Rate 106 H 12/09/22 16:08 Respiratory Rate 18 12/09/22 16:08 Blood Pressure 174/103 H 12/09/22 16:08 Pulse Oximetry 96 12/09/22 16:08 Oxygen Delivery Method Room Air 12/09/22 16:08 Temperature 97.5 F L 12/09/22 16:08 Pulse Rate 60 12/09/22 20:21 Respiratory Rate 18 12/09/22 20:21 Blood Pressure 180/91 H 12/09/22 20:21 Pulse Oximetry 94 12/09/22 20:21 Oxygen Delivery Method Room Air 12/09/22 16:23 Medical Decision Making Lab Data Labs: Lab Results 12/09/22 12/09/22 Range/Units 16:30 17:30 WBC 8.30 (4.50-11.00) K/uL RBC 5.01 (4.00-5.20) m/uL Hgb 14.7 (12.0-16.0) gm/dL Hct 44.0 (33.0-51.0) % MCV 88 (80-100) fL MCH 29 (26-34) pg MCHC 33 (32-36) gm/dL RDW Coeff of Sabrina 13.2 (11.5-15.5) % Plt Count 256 (140-440) K/uL Neut % (Auto) 63.0 (42.0-72.0) % Lymph % (Auto) 25.9 (20-44) % [place] % (Auto) 8.9 (0.0-11.0) % Eos % (Auto) 2.0 (0.0-7.0) % Baso % (Auto) 0.1 (0.0-3.0) % Neut # (Auto) 5.22 (1.7-7.0) K/uL Lymph # (Auto) 2.15 (0.90-2.90) K/uL [place] # (Auto) 0.70 (0.00-0.90) K/UL Eos # (Auto) 0.17 (0.00-0.50) K/uL Baso # (Auto) 0.01 (0.00-0.30) K/uL Abs Immat Gran (auto) 0.01 (0.00-0.30) K/uL Imm/Tot Granulo (auto) 0.1 % D-Dimer Quant (PE/DVT) 0.80 H (0.00-0.50) ug/ml Sodium 135 (135-149) mmol/L Potassium 3.9 (3.6-5.1) mmol/L Chloride 101 (96-114) mmol/L Carbon Dioxide 21 (20-32) mmol/L Anion Gap 13 (7-15) mEq/L BUN 12 (7-30) mg/dL Creatinine 0.5 (0.5-1.5) mg/dL Estimated Creat Clear 38.94 Estimated GFR 100 ml/min Glucose 111 (60-115) mg/dL Calcium 9.3 (8.4-10.6) mg/dL Total Bilirubin 0.5 (0.1-1.5) mg/dL Direct Bilirubin 0.0 (0.0-0.5) mg/dL AST 35 (12-35) U/L ALT 34 (4-35) U/L Alkaline Phosphatase 78 (40-150) U/L C-Reactive Protein 0.8 (0.5-1.0) mg/dL NT-Pro-B Natriuret Pep 40 pg/mL Total Protein 7.5 (6.0-8.3) g/dL Albumin 4.3 (3.3-5.0) g/dL Lipase 32 (23-300) U/L Urine Color Yellow (Yellow) Urine Appearance Clear (Clear) Urine pH 6.5 (5.0-8.5) Ur Specific [place] 1.010 (1.000-1.030) Urine Protein Negative (Negative) Urine Glucose (UA) Negative (Negative) Urine Ketones Trace A (Negative) Urine Blood Negative (Negative) Urine Nitrite Negative (Negative) Urine Bilirubin Negative (Negative) Urine Urobilinogen 0.2 (0.2-1.0) Ur Leukocyte Esterase Trace A (Negative) Urine RBC 0-2 (0-2) Urine WBC 0-2 (0-5) Ur Squamous Epith Cells Few (None-Few) Urine Bacteria Few A (None) SARS-CoV-2 (PCR) Negative SARS-CoV-2 (Negative) Influenza Type A (PCR) Negative PCR FLU A (Negative) Influenza Type B (PCR) Negative PCR FLU B (Negative) RSV (PCR) Negative PCR RSV (Negative) POC Troponin I 0.00 L (0.01-0.04) ng/ml Discharge Plan Discharge Clinical Impression: Left-sided thoracic back pain Patient Disposition: Home, Self-Care Condition: Improved Instructions: Thoracic Pain (ED) Additional Instructions: Tylenol 1000 mg 3 times daily as needed for pain. Lidocaine patches prescribed as well for you to try. Your chest today are all reassuring. CT scan does not show any evidence of pneumonia, blood clot, or other concerning abnormality. Pain is likely muscular, but if it is progressive or severe, you have new symptoms such as fever, vomiting, or other worsening, return for re-evaluation. Otherwise, would recommend primary care follow-up next week for recheck. Prescriptions: New lidocaine 5 % adhesive patch,medicated 1 patch topical DAILY Qty: 15 0RF Rx Instructions: leave on most painful area for up to 12 hrs No Action omega-3 fatty acids 1,000 mg capsule 1,000 mg PO QDAY multivitamin [Multiple Vitamins] Tablet 1 tab PO QDAY hydrochlorothiazide 12.5 mg tablet 12.5 mg PO QDAY Patient Comments: TAKE ONE TABLET BY MOUTH ONE TIME DAILY lisinopril 20 mg tablet 20 mg PO QDAY Patient Comments: TAKE ONE TABLET BY MOUTH ONE TIME DAILY (DME) Contour Next Test Strips Strip See Rx Instructions .ROUTE .MEDSUPPLY Qty: 10 Patient Comments: use to Test 3 times per day Rx Instructions: As directed cyanocobalamin (vitamin B-12) 1,000 mcg tablet 1,000 mcg PO QDAY Patient Comments: Take 1 Tablet (1,000 mcg) by mouth once daily. azithromycin 250 mg tablet See Rx Instructions PO .COMPLEX Qty: 6 0RF Rx Instructions: For 250 mg dose pack: take 500 mg today (day 1), then 250 mg for 4 days (days 2-5) PO Follow Up/Referrals: Eliana Guaman MD [Primary Care Provider] - Stand Alone Forms: [facility] Info Instructions
[2022-12-09] MEDS: 0.9 % SODIUM CHLORIDE 500 ML 500 ML IV (16:40)
[2022-12-09] MEDS: LORazepam 2 MG/ML inj 0.5 MG IVP (16:40)
--- NOTE | 2022-12-09 16:41 | ED.NURSE ---
Patient reports no pain and declines Morphine
[2022-12-09 16:47] LABS: Basophils Absolute Auto 0.01 K/uL (0.00-0.30); Basophils Percent Auto 0.1 % (0.0-3.0); Eosinophils Absolute Auto 0.17 K/uL (0.00-0.50); Hemoglobin* 14.7 gm/dL (12.0-16.0); Immature Granulocytes Abs Auto 0.01 K/uL (0.00-0.30); Immature Granulocytes Pct Auto 0.1 %; Lymphocytes Absolute Auto 2.15 K/uL (0.90-2.90); Lymphocytes Percent Auto 25.9 % (20-44); Mean Corpuscular HGB Conc 33 gm/dL (32-36); Mean Corpuscular Hemoglobin 29 pg (26-34); Mean Corpuscular Volume 88 fL (80-100); Monocytes Percent Auto 8.9 % (0.0-11.0); Neutrophils Absolute Auto 5.22 K/uL (1.7-7.0); Platelet Count* 256 K/uL (140-440); RDW Coefficient of Variation % 13.2 % (11.5-15.5); Red Blood Count 5.01 m/uL (4.00-5.20)
[2022-12-09 16:54] LABS: Slide Review Reflex No
[2022-12-09 17:01] LABS: Albumin* 4.3 g/dL (3.3-5.0); Chloride* 101 mmol/L (96-114)
[2022-12-09 17:02] LABS: Potassium* 3.9 mmol/L (3.6-5.1); Sodium* 135 mmol/L (135-149)
[2022-12-09 17:04] LABS: Creatinine* 0.5 mg/dL (0.5-1.5); Est. Creatinine Clearance* 38.94; Estimated Glomerular Filt Rate 100 ml/min
[2022-12-09 17:05] LABS: Alanine Aminotransferase* 34 U/L (4-35); Alkaline Phosphatase* 78 U/L (40-150); Anion Gap 13 mEq/L (7-15); Aspartate Amino Transferase* 35 U/L (12-35); Bilirubin Total* 0.5 mg/dL (0.1-1.5); Blood Urea Nitrogen* 12 mg/dL (7-30); Calcium* 9.3 mg/dL (8.4-10.6); Carbon Dioxide* 21 mmol/L (20-32); Glucose* 111 mg/dL (60-115); Lipase* 32 U/L (23-300); Total Protein* 7.5 g/dL (6.0-8.3)
[2022-12-09 17:07] LABS: C Reactive Protein* 0.8 mg/dL (0.5-1.0)
[2022-12-09 17:17] LABS: NT Pro B Type NatriureticPept* 40 pg/mL
[2022-12-09 17:27] LABS: PCR FLU A Negative PCR FLU A (Negative); PCR FLU B Negative PCR FLU B (Negative); PCR RSV Negative PCR RSV (Negative)
[2022-12-09 17:35] LABS: Appearance Urine Clear (Clear); Bilirubin Urine Negative (Negative); Blood Urine Negative (Negative); Color Urine Yellow (Yellow); Glucose Urine Negative (Negative); Ketones Urine Trace (Negative); Leukocyte Esterase Urine Trace (Negative); Nitrite Urine Negative (Negative); Protein Urine Negative (Negative); Urobilinogen Urine 0.2 (0.2-1.0); pH Urine 6.5 (5.0-8.5)
[2022-12-09 17:55] LABS: Bacteria Urine Few; RBC Urine 0-2 (0-2); Squamous Epithelial Cell Urine Few (None-Few); WBC Urine 0-2 (0-5)
[2022-12-09] MEDS: HYDROCORTISONE SOD SUCCINATE 50 MG/ML inj 200 MG IVP (18:12)
[2022-12-09] MEDS: diphenhydrAMINE 50 MG/ML inj IVP (18:12)
--- NOTE | 2022-12-09 18:22 | CRLHL7_ITS ---
For Patients: As a result of the 21st Century Cures Act, medical imaging exams and procedure reports are released immediately into your electronic medical record. You may view this report before your referring provider. If you have questions, please contact your health care provider. INDICATION: .L back pain, SOB, hiatal surgery oct 6 TECHNIQUE: CT chest PE was acquired with 95 cc Isovue 370 IV contrast. COMPARISON: None FINDINGS: Pulmonary Arteries: No CT evidence of pulmonary thromboembolic disease. No pulmonary hypertension or right ventricular strain. Heart and Mediastinum: 15 millimeter left thyroid nodule. No axillary or supraclavicular lymphadenopathy. No mediastinal, hilar or retrocrural lymphadenopathy. Normal heart size. Normal caliber aorta. Atherosclerotic calcifications. Lungs and Airways: Motion. Subsegmental atelectasis. Calcified granulomas. No mass or consolidation. 3 millimeter right lower lobe indeterminate pulmonary nodule abutting the major fissure. Sub 6 millimeter indeterminate pulmonary nodules in the subpleural spaces, likely intrapulmonary lymphoid tissue. A few scattered areas of air trapping within the lung bases. No endoluminal lesion. Pleura: The pleural spaces are normal. Abdomen: Colonic diverticulosis. Bones and soft tissues: The skeletal structures and soft tissues of the chest wall are unremarkable. IMPRESSION: 1. No CT evidence of pulmonary thromboembolic disease. 2. No intrathoracic mass or consolidation. 3. 15 millimeter left thyroid nodule. Recommend nonemergent thyroid ultrasound if not previously evaluated. 4. Scattered sub 6 millimeter indeterminate pulmonary nodules, predominantly in the subpleural spaces likely reflecting intrapulmonary lymphoid tissue. If the patient is considered low risk for primary lung cancer, these do not require additional follow-up. If the patient is considered high-risk for primary lung cancer, consider optional unenhanced chest CT in 12 months to document stability and to assess for underlying malignant potential per Fleischner society guidelines. Please note that all CT scans at this facility use dose modulation, iterative reconstruction, and/or weight-based dosing when appropriate to reduce radiation dose to as low as reasonably achievable. Dictated by Smith Quevedo MD @ 12/09/2022 8:17:29 PM (Electronically Signed)
[2022-12-09 18:30] LABS: SARS PCR* Negative SARS-CoV-2 (Negative)
== END 2022-12-09 20:49 | disposition home or self-care (01) ==
PROVIDERS: Emergency Provider Emergency Medicine; PCP Family Medicine
DX: M54.6 Pain in thoracic spine (principal)
CPT/HCPCS: 36415; 71045; 71275; 80048; 80076; 81001; 83690; 83880; 84484; 85025; 85379; 86140; 87086; 87631; 93005; 94761; 96374; 96375; 99284; J1200; J1720; J2060; J7120; Q9967

== ENCOUNTER 2022-12-11 18:47 | Emergency (ER) | payer MEDICARE, SELFPAY ==
[2022-12-11 18:58] VITALS: BP 165/90; PULSE 64; RESP 24; TEMP 36.2; O2SAT 96; BMI 34.4
--- NOTE | 2022-12-11 19:09 | ED_ITS ---
HPI - General Adult General Time Seen by Provider: 19:09 Date Seen: 12/11/22 Chief complaint: Shortness of Breath/Dyspnea Stated complaint: Shortness of breath-rapid br-here lyn-same Time Seen by Provider: 12/11/22 18:58 History of Present Illness HPI narrative: 72-year-old female with a past medical history of GERD with recent door procedure (done by Dr. Mcclelland at [facility] about 2 weeks ago to correct hiatal hernia and GERD), hypertension, type 2 diabetes, thyroid disease, arthritis, but no known history of coronary artery disease presents to the ER today for shortness of breath, burning discomfort in her chest, generalized weakness. Ever since her surgery she has been having trouble. She has had generalized weakness. She had been sticking to a liquid very soft diet. A few days ago she started to developed discomfort in her thorax. She actually started with a sharp pain below her left scapula in the left rib cage and then subsequently also developed intermittent episodes of burning discomfort in her anterior chest. She feels mildly short of breath. She thinks that her symptoms might be due to anxiety, because she also developed that last spring. She did go to a chiropractor a few days ago and had manipulation. She said that they ?popped a rib? back in and that instantly helped her back pain feel better. Her chiropractor told to come to the ER. She was here in the ER 2 days ago and had a workup including normal cardiac labs,, nonspecific EKG, an or the normal chest x-ray. Abnormal D-dimer did prompt a chest CT. CT scan was negative for PE or any other signs of infection or inflammation in the mediastinum. CT scan did show nonspecific nodules within the lungs. She also knows that her blood pressure was quite elevated and alarmingly so for her during her ER visit that day. She received Ativan, Benadryl which helped anxiety but made her excessively sleepy. Yesterday, on Thursday she was better. She was not really having any symptoms of shortness of breath a burning in her chest. She had a phone consultation with her surgeon's nurse and was told it was appropriate for her to advance her diet to include soft solids such as pasta. She is pleased with her progress. Since she woke up this morning she has been having some mild shortness of breath, generalized weakness, burning in her chest. She came back to the ER today with concern that her breathing is just a little bit short, and little bit of burning in her chest. She actually says that she thinks her symptoms are due to anxiety. She has never been on anxiety medicine before but she thinks probably finally time to start. She also wonders why her EKG was ?not normal? the other day. She does not have any swelling in her legs but she does note that her weight is up 2 lb today. No fever. No cough. Per MEDICAL RECORDS: 12/09 ED Chest pain Per physician note- Patient is a 72-year-old woman who comes in saying that she has had pain by her left shoulder blade for 2 days associated with shortness of breath. Pain is not pleuritic nor is it worsened by motion. She says she tried to call and make an appoint with her primary doctor but could not be seen. She went to her chiropractor who told her that 1 of her left ribs was out of place and popped it back into place, but she says that her chiropractor told her that could affect her heart and she needed to go get her heart checked out. She has been coughing up some green phlegm for about a month, she says she was seen in urgent care and they felt it was viral. She feels that it is related to her gallbladder. She also says that gallbladder symptoms can include pain underneath the left rib cage. She is adamant that she is read this on [employer] and is fairly sure that at least some for symptoms are related to her gallbladder. She has not had nausea or vomiting. She said she had a fever yesterday, did not check her temperature but said she felt hot and cold. She has not had chest pain. She had a Manoj fundoplication on November 28. She has not had lower extremity swelling or pain. She has not had significant abdominal pain. She does not smoke. She notes allergies to amoxicillin and contrast dye. No history of DVT or PE, no anticoagulation. I am going to give her some morphine as well as a 0.5 mg of Ativan and a L of normal saline. Given her contrast allergy am going to start with a D-dimer. Diagnostic considerations include pneumonia, pneumothorax, pulmonary embolism, acute coronary syndrome, postoperative complication such as infection, perforated viscus, dissection. Biliary pathology is not entirely ruled out although a little less likely given she does not have any abdominal pain or GI symptoms. Labs are really quite unremarkable, white blood cell count is normal at 8.3, hemoglobin normal. Metabolic panel and LFTs are within normal limits, CRP is 0.8, BNP is 40. Lipase 32. UA negative. COVID was negative. X-ray by my review was unremarkable, read as negative by Radiology as well. I did do a D-dimer, this returned at 0.8, just very minimally elevated relative to age. I discussed this finding with her and the pros and cons of doing a CT scan of the chest. She does have a contrast allergy but says she has done well with pretreatment and has not had a reaction for decades. She did prefer to go forward with the CT of the chest. CT chest IMPRESSION: 1. No CT evidence of pulmonary thromboembolic disease. 2. No intrathoracic mass or consolidation. 3. 15 millimeter left thyroid nodule. Recommend nonemergent thyroid ultrasound if not previously evaluated. 4. Scattered sub 6 millimeter indeterminate pulmonary nodules, predominantly in the subpleural spaces likely reflecting intrapulmonary lymphoid tissue. If the patient is considered low risk for primary lung cancer, these do not require additional follow-up. If the patient is considered high-risk for primary lung cancer, consider optional unenhanced chest CT in 12 months to document stability and to assess for underlying malignant potential per Fleischner society guidelines.IMPRESSION: 1. No CT evidence of pulmonary thromboembolic disease. 2. No intrathoracic mass or consolidation. 3. 15 millimeter left thyroid nodule. Recommend nonemergent thyroid ultrasound if not previously evaluated. 4. Scattered sub 6 millimeter indeterminate pulmonary nodules, predominantly in the subpleural spaces likely reflecting intrapulmonary lymphoid tissue. If the patient is considered low risk for primary lung cancer, these do not require additional follow-up. If the patient is considered high-risk for primary lung cancer, consider optional unenhanced chest CT in 12 months to document stability and to assess for underlying malignant potential per Fleischner society guidelines. She was also in the ER October for chest discomfort. 10/25 ED Chest pain for couple of days. Patient had a Sanchez sensor placed last Thursday. XR Chest Findings/Impression: PA and lateral views of the chest were obtained. The cardiac silhouette and pulmonary vasculature are within normal limits. The lungs are clear of acute infiltrates. 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 It looks like her chest discomfort was thought to be due to GERD or the presence of her Sanchez capsule. Related Data Home Medications Medication Instructions Recorded Confirmed blood sugar diagnostic (Contour #10 ea 09/09/21 11/14/22 Next Test Strips) cyanocobalamin (vitamin B-12) 1,000 mcg PO QDAY 09/09/21 11/14/22 1,000 mcg tablet hydrochlorothiazide 12.5 mg tablet 12.5 mg PO QDAY 09/09/21 11/14/22 lisinopril 20 mg tablet 20 mg PO QDAY 09/09/21 11/14/22 multivitamin (Multiple Vitamins 1 tab PO QDAY 09/09/21 11/14/22 tablet) omega-3 fatty acids 1,000 mg 1,000 mg PO QDAY 09/09/21 11/14/22 capsule Previous Rx's Medication Instructions Recorded azithromycin 250 mg tablet See Rx Instructions PO .COMPLEX #6 11/22/22 tabs lidocaine 5 % topical patch 1 patch topical DAILY #15 ea 12/09/22 lorazepam 0.5 mg tablet (Ativan) 0.5 mg PO BID PRN #7 tabs 12/11/22 Allergies Allergy/AdvReac Type Severity Reaction Status Date / Time amoxicillin Allergy Unknown Rash Verified 11/14/22 13:55 Iodinated Contrast Media Allergy hives Verified 11/14/22 13:55 [facility] Medical History Sore throat ?J02.9 - Acute pharyngitis, unspecified (ICD-10) Diabetes type 2, controlled ?E11.9 - Type 2 diabetes mellitus without complications (ICD-10) Abdominal hernia ?K46.9 - Unspecified abdominal hernia without obstruction or gangrene (ICD- 10) Thyroid disease ?E07.9 - Disorder of thyroid, unspecified (ICD-10) Hypertension ?I10 - Essential (primary) hypertension (ICD-10) Upper respiratory tract infection ?J06.9 - Acute upper respiratory infection, unspecified (ICD-10) Rash ?R21 - Rash and other nonspecific skin eruption (ICD-10) Surgical History H/O section ?Z98.891 - History of uterine scar from previous surgery (ICD-10) History of hernia repair ?Z98.890 - Other specified postprocedural states (ICD-10) ?Z87.19 - Personal history of other diseases of the digestive system (ICD-10) Status post intraocular lens implant ?Z96.1 - Presence of intraocular lens (ICD-10) Family History Father Throat cancer Brother Stroke Maternal Grandmother Stroke Mother Rupture, aorta Social History Smoking Status: Former smoker Do you use any of these nicotine containing products: None Second hand tobacco smoke exposure: Yes How often do you have a drink containing alcohol: never How often do you have six or more drinks on one occasion: Never AUDIT-C Alcohol total score: 0 Non-prescribed substance use: denies use service: No Exam Narrative: Exam Narrative: Constitutional: Appears well-developed and well-nourished. Alert. Conversant. Non toxic. HENT: Head: Atraumatic. Nose: Nose normal. Mouth/Throat: Oral mucosa is clear and moist. no trismus. Pharynx normal. Tonsils symmetric. No tonsillar enlargement, erythema, or exudate. Eyes: Conjunctivae normal. EOM normal. Pupils equal, round, and reactive to light. No scleral icterus. Neck: Normal range of motion. Neck supple. No tracheal deviation present. No JVD Cardiovascular: Normal rate, regular rhythm. No gallop. No friction rub. No murmur heard. Symmetric radial and PT artery pulses Pulmonary/Chest: Effort normal. No stridor. No respiratory distress. No wheezes. No rales. No rhonchi . No tenderness. Abdominal: Soft. Bowel sounds normal. No distension. No mass. No tenderness. No rebound. No guarding. Musculoskeletal: RUE: Normal range of motion. No tenderness. No deformity LUE: Normal range of motion. No tenderness. No deformity RLE: Normal range of motion. No edema. No tenderness. No deformity LLE: Normal range of motion. No edema. No tenderness. No deformity Lymph: No cervical adenopathy. Neurological: Alert and oriented to person, place, and time. Normal strength. CN II-VII intact. No sensory deficit. GCS eye subscore is 4. GCS verbal subscore is 5. GCS motor subscore is 6. Normal coordination Skin: Skin is warm and dry. No rash noted. No pallor. Normal capillary refill. Psychiatric: Normal mood. Normal affect. She is polite. She says that she thinks a lot of her symptoms are being driven by anxiety. She had excess sedation with a combination of Ativan, Benadryl given to her last week. She would like to try some mild anxiety medicine. We agreed to try very low-dose of only Ativan today. Const: Vital Signs, click to edit/add: Vital Signs - 24 hr 12/11/22 18:58 Temperature 97.2 F L Pulse Rate [Femora l] 64 Respiratory Rate 24 Blood Pressure [Ri ght Forearm] 165/90 H Pulse Oximetry 96 Oxygen Delivery Me thod Room Air Course Course ED Course: Recheck-patient hemodynamically stable. Breathing easily. Says her anxiety feels better after receiving Ativan. We discussed her reassuring troponin, chest x-ray, BNP level. At this point no evidence for ACS or CHF causing her dyspnea. She suspects that she probably does have anxiety as a cause for that. She has already started the process of arranging appoint with her primary care to discuss anxiety medicines. She then notes that she is having right upper quadrant abdominal pain and is worried about gallstones. On my exam she is not really tender. No Garber sign. No guarding or rebound. Discussed with the patient that gallstones are a possibility although typically they would radiate pain to the right shoulder blade, not the left. At this point no evidence for acute cholecystitis. Lipase normal. She is very worried about possibility of gallstones. Therefore we will obtain gallbladder ultrasound tonight. Vital Signs Vital signs: Initial Vital Signs Temperature 97.2 F L 12/11/22 18:58 Temperature Source Temporal Artery Scan 12/11/22 18:58 Pulse Rate 64 12/11/22 18:58 Pulse Rhythm Regular 12/11/22 18:58 Respiratory Rate 24 12/11/22 18:58 Blood Pressure 165/90 H 12/11/22 18:58 Blood Pressure Mean 115 H 12/11/22 18:58 Blood Pressure Position Supine 12/11/22 18:58 Pulse Oximetry 96 12/11/22 18:58 Oxygen Delivery Method Room Air 12/11/22 18:58 Vital Signs Temperature 97.2 F L 12/11/22 18:58 Pulse Rate 64 12/11/22 18:58 Respiratory Rate 24 12/11/22 18:58 Blood Pressure 165/90 H 12/11/22 18:58 Pulse Oximetry 96 12/11/22 18:58 Oxygen Delivery Method Room Air 12/11/22 18:58 Temperature 97.2 F L 12/11/22 18:58 Pulse Rate 64 12/11/22 18:58 Respiratory Rate 24 12/11/22 18:58 Blood Pressure 165/90 H 12/11/22 18:58 Pulse Oximetry 96 12/11/22 18:58 Oxygen Delivery Method Room Air 12/11/22 18:58 Medical Decision Making MDM Narrative Medical decision making narrative: This patient presents to the ER today for evaluation of shortness of breath ongoing all day and burning discomfort in her chest as well as multiple other symptoms occurring over the past couple weeks since she had esophageal surgery. Differential was broad. No evidence of palpitations, syncope or other cardiac dysrhythmia. We considered possible ACS, however workup with EKG and troponin is negative. Given time since onset of symptoms, I do not think the patient needs to be admitted for further sets of enzymes. Clinical history of chest pain with no exertional component her refill with rest does not fit with unstable angina. Discussed with the patient that women will have atypical presentations for heart disease so although workup here in the ER tonight is reassuring would recommend close outpatient follow-up with primary care provider and consideration of possible outpatient stress testing. EKG shows no evidence for pericarditis. Clinical presentation not suggestive of myocarditis. Chest x-ray shows no evidence for pneumonia, pneumothorax, pulmonary edema, pleural effusion, rib fracture, cardiomegaly. Mediastinum is normal on the x-ray. The patient has no ripping or tearing pain through to the back and has symmetric pulses on exam, no other acute neuro findings so I doubt aortic dissection. Risk of radiation and contrast exposure would outweigh the benefit of CT angiogram. We considered PE for this patient. She had negative CT scan 2 days ago in the ER. No wheezing or bronchospasm to suggest COPD/asthma. No signs of chest wall cellulitis, shingles, injury. She is also concerned about right upper quadrant abdominal pain. Lipase normal. White count normal. Exam reassuring. I have low clinical suspicion for active cholecystitis but we will obtain right upper quadrant ultrasound here in the ER [facility]. Ultrasound ordered. Discussed with my partner, Dr. Conteh. He will follow-up on the ultrasound result. With reasonable clinical confidence, I think the patient is safe for outpatient follow up. Discussed return precautions. Questions answered. Patient voices comf ort with the plan. Lab Data Labs: Lab Results 12/11/22 12/11/22 12/11/22 Range/Units 19:42 19:42 19:42 WBC 8.44 (4.50-11.00) K/uL RBC 5.18 (4.00-5.20) m/uL Hgb 15.3 (12.0-16.0) gm/dL Hct 45.3 (33.0-51.0) % MCV 88 (80-100) fL MCH 30 (26-34) pg MCHC 34 (32-36) gm/dL RDW Coeff of Sabrina 13.4 (11.5-15.5) % Plt Count 272 (140-440) K/uL Neut % (Auto) 60.8 (42.0-72.0) % Lymph % (Auto) 28.8 (20-44) % Meriwether % (Auto) 7.7 (0.0-11.0) % Eos % (Auto) 2.5 (0.0-7.0) % Baso % (Auto) 0.1 (0.0-3.0) % Neut # (Auto) 5.13 (1.7-7.0) K/uL Lymph # (Auto) 2.43 (0.90-2.90) K/uL Meriwether # (Auto) 0.60 (0.00-0.90) K/UL Eos # (Auto) 0.21 (0.00-0.50) K/uL Baso # (Auto) 0.01 (0.00-0.30) K/uL Abs Immat Gran (auto) 0.01 (0.00-0.30) K/uL Imm/Tot Granulo (auto) 0.1 % Sodium 136 (135-149) mmol/L Potassium 3.4 L (3.6-5.1) mmol/L Chloride 103 (96-114) mmol/L Carbon Dioxide 22 (20-32) mmol/L Anion Gap 11 (7-15) mEq/L BUN 10 (7-30) mg/dL Creatinine 0.5 (0.5-1.5) mg/dL Estimated Creat Clear 40.81 Estimated GFR 100 ml/min Glucose 104 (60-115) mg/dL Calcium 9.6 (8.4-10.6) mg/dL Troponin I < 0.01 L Cancelled (0.01-0.04) ng/mL NT-Pro-B Natriuret Pep 61 Cancelled pg/mL Lipase 31 (23-300) U/L 12/11/22 Range/Units 19:42 WBC (4.50-11.00) K/uL RBC (4.00-5.20) m/uL Hgb (12.0-16.0) gm/dL Hct (33.0-51.0) % MCV (80-100) fL MCH (26-34) pg MCHC (32-36) gm/dL RDW Coeff of Sabrina (11.5-15.5) % Plt Count (140-440) K/uL Neut % (Auto) (42.0-72.0) % Lymph % (Auto) (20-44) % Meriwether % (Auto) (0.0-11.0) % Eos % (Auto) (0.0-7.0) % Baso % (Auto) (0.0-3.0) % Neut # (Auto) (1.7-7.0) K/uL Lymph # (Auto) (0.90-2.90) K/uL Meriwether # (Auto) (0.00-0.90) K/UL Eos # (Auto) (0.00-0.50) K/uL Baso # (Auto) (0.00-0.30) K/uL Abs Immat Gran (auto) (0.00-0.30) K/uL Imm/Tot Granulo (auto) % Sodium (135-149) mmol/L Potassium (3.6-5.1) mmol/L Chloride (96-114) mmol/L Carbon Dioxide (20-32) mmol/L Anion Gap (7-15) mEq/L BUN (7-30) mg/dL Creatinine (0.5-1.5) mg/dL Estimated Creat Clear Estimated GFR ml/min Glucose (60-115) mg/dL Calcium (8.4-10.6) mg/dL Troponin I (0.01-0.04) ng/mL NT-Pro-B Natriuret Pep pg/mL Lipase Cancelled (23-300) U/L Imaging Data Chest x-ray: Attestation: I have reviewed the pertinent imaging results. Radiologist's impression: IMPRESSION: No evidence of acute cardiopulmonary process. ECG Data Attestation: I personally reviewed and interpreted this ECG as follows: Interpretation: Normal sinus rhythm rate 64 CA 156 QRS axis normal axis. No pathologic Q-waves. ST segment/T wave: Nonspecific T-wave flattening throughout. No ST segment elevation or depression. No change compared to 12/09/2022 QTc: 416 Discharge Plan Discharge Clinical Impression: Anxiety, Dyspnea, Abdominal pain, Chest pain Patient Disposition: Home, Self-Care Condition: Stable Instructions: Chest Pain (ED), Dyspnea (ED), Anxiety (ED) Additional Instructions: As we discussed, please follow-up with your regular doctor for prescriptions for anxiety medicine. Use Ativan if needed for anxiety at home. Please return to the ER if you have worsening symptoms especially worsening chest pain, trouble breathing, high fever, worsening abdominal pain, uncontrolled vomiting or other problems. Prescriptions: New lorazepam [Ativan] 0.5 mg tablet 0.5 mg PO BID PRNQty: 7 0RF No Action omega-3 fatty acids 1,000 mg capsule 1,000 mg PO QDAY multivitamin [Multiple Vitamins] Tablet 1 tab PO QDAY hydrochlorothiazide 12.5 mg tablet 12.5 mg PO QDAY Patient Comments: TAKE ONE TABLET BY MOUTH ONE TIME DAILY lisinopril 20 mg tablet 20 mg PO QDAY Patient Comments: TAKE ONE TABLET BY MOUTH ONE TIME DAILY (DME) Contour Next Test Strips Strip See Rx Instructions .ROUTE .MEDSUPPLY Qty: 10 Patient Comments: use to Test 3 times per day Rx Instructions: As directed cyanocobalamin (vitamin B-12) 1,000 mcg tablet 1,000 mcg PO QDAY Patient Comments: Take 1 Tablet (1,000 mcg) by mouth once daily. lidocaine 5 % adhesive patch,medicated 1 patch topical DAILY Qty: 15 0RF Rx Instructions: leave on most painful area for up to 12 hrs azithromycin 250 mg tablet See Rx Instructions PO .COMPLEX Qty: 6 0RF Rx Instructions: For 250 mg dose pack: take 500 mg today (day 1), then 250 mg for 4 days (days 2-5) PO Follow Up/Referrals: Eliana Guaman MD [Primary Care Provider] - Stand Alone Forms: [employer] Info Instructions
--- NOTE | 2022-12-11 19:35 | CRLHL7_ITS ---
For Patients: As a result of the Century Cures Act, medical imaging exams and procedure reports are released immediately into your electronic medical record. You may view this report before your referring provider. If you have questions, please contact your health care provider. INDICATION: SOB TECHNIQUE: Chest 2 views. COMPARISON: Chest x-ray December 09, 2022. FINDINGS: Cardiovascular and mediastinum: Heart size and vasculature are normal in caliber and appearance. Lungs and pleural spaces: Lungs are clear. No sign of infiltrate. No sign of pleural effusion. No pneumothorax. Bones and soft tissues: No significant findings. IMPRESSION: No evidence of acute cardiopulmonary process. Dictated by Andi Argueta MD @ 12/11/2022 8:30:23 PM (Electronically Signed)
[2022-12-11 19:51] LABS: Basophils Absolute Auto 0.01 K/uL (0.00-0.30); Basophils Percent Auto 0.1 % (0.0-3.0); Eosinophils Absolute Auto 0.21 K/uL (0.00-0.50); Eosinophils Percent Auto 2.5 % (0.0-7.0); Hematocrit 45.3 % (33.0-51.0); Hemoglobin* 15.3 gm/dL (12.0-16.0); Immature Granulocytes Abs Auto 0.01 K/uL (0.00-0.30); Immature Granulocytes Pct Auto 0.1 %; Lymphocytes Absolute Auto 2.43 K/uL (0.90-2.90); Lymphocytes Percent Auto 28.8 % (20-44); Mean Corpuscular HGB Conc 34 gm/dL (32-36); Mean Corpuscular Hemoglobin 30 pg (26-34); Mean Corpuscular Volume 88 fL (80-100); Monocytes Percent Auto 7.7 % (0.0-11.0); Neutrophils Absolute Auto 5.13 K/uL (1.7-7.0); Neutrophils Percent Auto 60.8 % (42.0-72.0); Platelet Count* 272 K/uL (140-440); RDW Coefficient of Variation % 13.4 % (11.5-15.5); Red Blood Count 5.18 m/uL (4.00-5.20); White Blood Count* 8.44 K/uL (4.50-11.00)
[2022-12-11 19:52] LABS: Slide Review Reflex No
[2022-12-11 20:05] LABS: Chloride* 103 mmol/L (96-114)
[2022-12-11 20:06] LABS: Potassium* 3.4 mmol/L (3.6-5.1); Sodium* 136 mmol/L (135-149)
[2022-12-11 20:08] LABS: Anion Gap 11 mEq/L (7-15); Carbon Dioxide* 22 mmol/L (20-32); Creatinine* 0.5 mg/dL (0.5-1.5); Est. Creatinine Clearance* 40.81; Estimated Glomerular Filt Rate 100 ml/min
[2022-12-11 20:09] LABS: Blood Urea Nitrogen* 10 mg/dL (7-30); Calcium* 9.6 mg/dL (8.4-10.6); Glucose* 104 mg/dL (60-115); Lipase* 31 U/L (23-300)
[2022-12-11] MEDS: LORazepam 2 MG/ML inj 0.25 MG IVP (20:14)
[2022-12-11] MEDS: ASPIRIN 81 MG TAB.CHEW 162 MG PO (20:14)
[2022-12-11 20:22] LABS: NT Pro B Type NatriureticPept* 61 pg/mL; Troponin I* < 0.01 ng/mL (0.01-0.04)
--- NOTE | 2022-12-11 20:48 | CRLHL7_ITS ---
For Patients: As a result of the Cures Act, medical imaging exams and procedure reports are released immediately into your electronic medical record. You may view this report before your referring provider. If you have questions, please contact your health care provider. INDICATION: Right upper quadrant, chest pain. TECHNIQUE: Ultrasound gallbladder limited. COMPARISON: None. FINDINGS: Gallbladder: Biliary sludge and cholelithiasis, the largest measuring 2.8 cm. Normal wall thickness. No pericholecystic fluid. Common bile duct: 6 mm. IMPRESSION: Cholelithiasis without evidence for cholecystitis. Dictated by Jj Berry MD @ 12/11/2022 9:57:56 PM (Electronically Signed)
[2022-12-11 21:10] VITALS: BP 139/81; PULSE 60; RESP 22; TEMP 36.1; O2SAT 98
== END 2022-12-11 22:18 | disposition home or self-care (01) ==
PROVIDERS: Emergency Provider Emergency Medicine; PCP Family Medicine
DX: F41.9 Anxiety disorder, unspecified (principal); R06.00 Dyspnea, unspecified; R07.9 Chest pain, unspecified
CPT/HCPCS: 36415; 71046; 76705; 80048; 83690; 83880; 84484; 85025; 93005; 96374; 99283; 99284; A9270; J2060

== ENCOUNTER 2023-02-04 09:51 | Outpatient (CLI) | payer MEDICARE, SELFPAY ==
--- NOTE | 2023-02-04 10:15 | CRLHL7_ITS ---
For Patients: As a result of the Century Cures Act, medical imaging exams and procedure reports are released immediately into your electronic medical record. You may view this report before your referring provider. If you have questions, please contact your health care provider. Technique: Single contrast esophagram performed with thin barium. Patient was unable to tolerate crystals. Fluoroscopy time 1 minute 57 second. Indication: S/P Hernia Repair Comparison: None. Findings: Mild spasm of the midesophagus noted without stricture or obstruction. Barium tablet passes through the GE junction normally. Postop changes of intact fundoplication. No recurrent hernia. No extravasation. No ulcer. No reflux. Impression: Normal postop changes. No recurrent hernia. Midesophageal spasm, mild. Dictated by Smith Rivera MD @ 02/04/2023 11:04:16 AM (Electronically Signed)
== END 2023-02-04 09:52 | disposition home or self-care (01) ==
LOC: RAD 09:52
PROVIDERS: PCP Family Medicine; Visit Provider Specialist
DX: Z98.890 Other specified postprocedural states (principal); Z87.19 Personal history of other diseases of the digestive system
CPT/HCPCS: 74221

== ENCOUNTER 2023-02-19 07:41 | Outpatient (CLI) | payer MEDICARE, SELFPAY ==
--- NOTE | 2023-02-19 08:00 | CRLHL7_ITS ---
For Patients: As a result of the Century Cures Act, medical imaging exams and procedure reports are released immediately into your electronic medical record. You may view this report before your referring provider. If you have questions, please contact your health care provider. INDICATION: RUQ PAIN TECHNIQUE: 5.10 mCi [id number] was injected intravenously. Images of the liver, gallbladder and abdomen were obtained for 45 minutes. CCK was then administered and imaging continued for an additional 27 minutes. COMPARISON: Ultrasound 12/11/2022 FINDINGS: There is good uptake of activity by the hepatocytes. There is visualization of the biliary tree, gallbladder and small bowel. In response to intravenous administration of 1.73 microcuries Kinevac, there is a gallbladder ejection fraction of 17 percent. IMPRESSION: Mildly decreased gallbladder ejection fraction of 17 percent. No cystic duct obstruction. Dictated by Smith Rivera MD @ 02/20/2023 8:55:05 AM (Electronically Signed)
== END 2023-02-19 07:42 | disposition home or self-care (01) ==
LOC: NM 07:42
PROVIDERS: PCP Family Medicine; Visit Provider Physician Assistant Surgical
DX: R10.11 Right upper quadrant pain (principal)
CPT/HCPCS: 78227; A9537; J2805

== ENCOUNTER 2023-04-23 12:54 | Outpatient (CLI) | payer MEDICARE, SELFPAY ==
--- NOTE | 2023-04-23 14:36 | W.ANESCHARGE ---
Anesthesia Charges Start Date/Time Anesthesia Start Date: 04/23/23 Anesthesia Start Time: 13:49 Stop Date/Time Anesthesia Stop Date: 04/23/23 Anesthesia Stop Time: 14:32 Summary Extremes of Age - Over 70 or under 1: [employer]
== END 2023-04-23 12:55 | disposition home or self-care (01) ==
PROVIDERS: PCP Family Medicine; Visit Provider Surgery
DX: R10.13 Epigastric pain (principal); K31.89 Other diseases of stomach and duodenum; K63.5 Polyp of colon; R10.84 Generalized abdominal pain
CPT/HCPCS: 00813; 43239; 45385; 88305; 99100; J2405; J2704

== ENCOUNTER 2023-08-24 12:27 | Emergency (ER) | payer MEDICARE, SELFPAY ==
[2023-08-24 12:35] VITALS: BP 132/78; PULSE 61; RESP 18; TEMP 36.4; O2SAT 99
--- NOTE | 2023-08-24 12:43 | ED.GENADULT ---
HPI - General Adult General Time Seen by Provider: 12:43 Date Seen: 08/24/23 Chief complaint: Abdominal Pain Stated complaint: burning sensation in abdomen up into chest Time Seen by Provider: 08/24/23 12:43 Source: patient Mode of arrival: ambulatory Limitations: no limitations History of Present Illness HPI narrative: Gabby is a 72-year-old female with a history of a partial Manoj secondary to reflux who comes to the emergency room with discomfort in her chest and abdomen for approximately 3 days. Patient notes that she is worried about the Manoj coming undone. She says it is partial and only on the anterior side. She notes similar symptoms 4 months ago and a barium enema at that time did not show any abnormality. Patient does not take omeprazole or Pepcid. She states that she tried Tums with Gaviscon in a did not help. 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 She notes that she usually uses a low dose of Flexeril once to twice a week and this has helped greatly. She notes tightness across her upper chest at this time. She describes the onset of the symptoms as almost a fist in her upper abdomen with radiation of acid into her for throat and up into her sinuses. This discomfort has been worsening since the onset 3 days ago. Patient denies any fever chills, respiratory symptoms. She notes that she does have follow-up planned with [facility] for mamometry and gastroparesis test. Patient's procedure Manoj was done by Dr. Jozef Mcclelland at [facility]. Patient does note intact gallbladder with history of stones but no history of cholecystitis or biliary colic. Related Data Home Medications ?Medication ?Instructions ?Recorded ?Confirmed blood sugar diagnostic (Contour #10 ea 09/09/21 11/14/22 Next Test Strips) hydrochlorothiazide 12.5 mg tablet 12.5 mg PO QDAY 09/09/21 08/24/23 lisinopril 20 mg tablet 20 mg PO QDAY 09/09/21 08/24/23 multivitamin (Multiple Vitamins 1 tab PO QDAY 09/09/21 08/24/23 tablet) cyclobenzaprine 5 mg tablet 5 mg PO BID PRN muscle spasm 08/24/23 08/24/23 lisinopril 5 mg tablet 5 mg PO DAILY 08/24/23 08/24/23 Previous Rx's ?Medication ?Instructions ?Recorded azithromycin 250 mg tablet See Rx Instructions PO .COMPLEX #6 11/22/22 tabs lidocaine 5 % topical patch 1 patch topical DAILY #15 ea 12/09/22 Allergies Allergy/AdvReac Type Severity Reaction Status Date / Time amoxicillin Allergy Unknown Rash Verified 08/24/23 15:59 Iodinated Contrast Media Allergy hives Verified 08/24/23 15:59 Review of Systems Status of ROS: Reports: 10 or more systems reviewed and unremarkable except as noted in History and below Const: Denies: fever, chills or fatigue Eyes: Denies: change in vision ENMT: Denies: difficulty swallowing or nasal congestion Cardio: Reports: chest pain (Tightness); Denies: shortness of breath with exertion Resp: Denies: shortness of breath or cough GI: Reports: abdominal pain and heartburn; Denies: nausea, vomiting or difficulty swallowing : Denies: painful urination Endo: Denies: fatigue PFSH PFS Medical History Sore throat ?J02.9 - Acute pharyngitis, unspecified (ICD-10) Diabetes type 2, controlled ?E11.9 - Type 2 diabetes mellitus without complications (ICD-10) Abdominal hernia ?K46.9 - Unspecified abdominal hernia without obstruction or gangrene (ICD-10) Thyroid disease ?E07.9 - Disorder of thyroid, unspecified (ICD-10) Hypertension ?I10 - Essential (primary) hypertension (ICD-10) Upper respiratory tract infection ?J06.9 - Acute upper respiratory infection, unspecified (ICD-10) Rash ?R21 - Rash and other nonspecific skin eruption (ICD-10) Surgical History H/O section ?Z98.891 - History of uterine scar from previous surgery (ICD-10) History of hernia repair ?Z98.890 - Other specified postprocedural states (ICD-10) ?Z87.19 - Personal history of other diseases of the digestive system (ICD-10) Status post intraocular lens implant ?Z96.1 - Presence of intraocular lens (ICD-10) Family History Father Throat cancer Brother Stroke Maternal Grandmother Stroke Mother Rupture, aorta Social History Smoking Status: Former smoker Do you use any of these nicotine containing products: None Second hand tobacco smoke exposure: Yes How often do you have a drink containing alcohol: never How often do you have six or more drinks on one occasion: Never AUDIT-C Alcohol total score: 0 Non-prescribed substance use: denies use service: No Exam Narrative: Exam Narrative: Patient is alert and oriented. Provides many details to her story. External ears eyes nose clear. Heart with regular rate and rhythm and lungs are clear bilaterally. Abdomen shows discomfort in the epigastrium. No right upper quadrant discomfort. Bowel sounds are present. Lower extremities without edema. Moving all extremities. Const: Vital Signs, click to edit/add: Vital Signs - 24 hr 08/24/23 12:35 Temperature 97.5 F L Pulse Rate [Right Pulse Oximeter] 61 Respiratory Rate 18 Blood Pressure [Ri ght Upper Arm] 132/78 Pulse Oximetry 99 Oxygen Delivery Me thod Room Air Documenting provider has reviewed patient's vital signs: yes Course Course ED Course: Differential diagnosis includes but is not limited to esophagitis, COVID, bowel obstruction, gastritis, biliary colic, pancreatitis, anxiety, sinus infection. Will test patient for COVID, place IV and draw labs to include CBC, comprehensive, CRP, lactate. Will give 1 L of fluid as well as Protonix 80 mg IV. Chest x-ray and upright of the abdomen also ordered. EKG and troponin as well. Reevaluation(s) Reevaluation #1: Patient informed that the abdominal x-ray does show increased air in the bowel possibly indicative of small-bowel obstruction. Given help patient is describing symptoms and these findings would suggest T CT of the chest abdomen pelvis. Patient has IV contrast listed as an allergy with hives. However, when I speak to her she states that was many years ago when they used a different formulation. Recently she has only had Benadryl prior to the CTs without difficulty. She had a previous CT and had been instructed to take a steroid but she states that she did not do it. She does understand the risks associated with this and therefore we will only use Benadryl 25 mg [address] to the [address]. Patient is receiving proton pump inhibitor at this time. I would like this as she is describing burning in the esophagus. I did state that this would be diagnostic for us on helpful. At this time she does agree. She notes previously being depressed after having taking omeprazole for 3 days. She is worried about the long-term affects and everything she has heard. I did discuss with her that the effects are mostly long-term from absorption issues and that 1 dose should not cause the problems that she is concerned about. Reevaluation #2: Chest abdomen pelvis without evidence of acute abnormality. 6 mm pulmonary nodules. Will recheck troponin at this time. She thinks that she is feeling better after having received PPI per IV. Vital Signs Vital signs: Initial Vital Signs Temperature 97.5 F L 08/24/23 12:35 Temperature Source Temporal Artery Scan 08/24/23 12:35 Pulse Rate 61 08/24/23 12:35 Pulse Rhythm Regular 08/24/23 12:35 Respiratory Rate 18 08/24/23 12:35 Blood Pressure 132/78 08/24/23 12:35 Blood Pressure Mean 96 08/24/23 12:35 Blood Pressure Position Sitting 08/24/23 12:35 Pulse Oximetry 99 08/24/23 12:35 Oxygen Delivery Method Room Air 08/24/23 12:35 Vital Signs Temperature 97.5 F L 08/24/23 12:35 Pulse Rate 61 08/24/23 12:35 Respiratory Rate 18 08/24/23 12:35 Blood Pressure 132/78 08/24/23 12:35 Pulse Oximetry 99 08/24/23 12:35 Oxygen Delivery Method Room Air 08/24/23 12:35 Temperature 97.5 F L 08/24/23 12:35 Pulse Rate 61 08/24/23 12:35 Respiratory Rate 18 08/24/23 12:35 Blood Pressure 132/78 08/24/23 12:35 Pulse Oximetry 99 08/24/23 12:35 Oxygen Delivery Method Room Air 08/24/23 12:35 Medications Administered Medications: Discontinued Medications Generic Name Dose Route Start Last Admin Trade Name Freq PRN Reason Stop Dose Admin Diphenhydramine HCl 25 mg 08/24/23 14:19 08/24/23 14:05 Diphenhydramine 50 Mg/Ml Inj IVP 08/24/23 14:20 25 mg ONCE ONE Administration Sodium Chloride 1,000 mls @ 1,000 mls/hr 08/24/23 13:10 08/24/23 15:50 0.9 % Sodium Chloride 1000 Ml IV 08/24/23 14:09 Infused .Q1H ABRAHAN Infusion Pantoprazole Sodium 80 mg 08/24/23 13:45 08/24/23 13:51 Pantoprazole Sodium 40 Mg Inj IVP 08/24/23 13:46 80 mg ONCE ONE Administration Medical Decision Making MDM Narrative Medical decision making narrative: 1. Abdominal pain-x-ray concerning for possibility of a small-bowel obstruction but CT is within normal limits. Reassurance at this time. 2. Chest pain-at this time patient has reassuring EKG as well as 2 sets of cardiac enzymes that are negative. I suspect that the discomfort she is feeling is related to her GERD as she describes this in the past. Notes from last fall indicate similar type symptoms. I strongly suggest that she start taking a PPI or H2 abbie. Today she received Protonix 80 mg IV. I think there is an element of esophagitis and gastritis at play here. She has already made an appointment with [facility] for follow-up and pH monitoring. I strongly encouraged her to keep this appointment. 3. Disposition-home at this time. Continue PPI or H2 abbie to manage acid reflux. Return to the emergency room for worsening symptoms. Medical Records Medical records reviewed: Yes I reviewed the patient's medical records Lab Data Lab results reviewed: Yes I reviewed the patient's lab results Labs: Lab Results 08/24/23 08/24/23 Range/Units 13:10 17:34 WBC 7.60 (4.50-11.00) K/uL RBC 4.93 (4.00-5.20) m/uL Hgb 14.5 (12.0-16.0) gm/dL Hct 43.4 (33.0-51.0) % MCV 88 (80-100) fL MCH 29 (26-34) pg MCHC 33 (32-36) gm/dL RDW Coeff of Sabrina 12.8 (11.5-15.5) % Plt Count 280 (140-440) K/uL Neut % (Auto) 63.7 (42.0-72.0) % Lymph % (Auto) 27.0 (20-44) % [place] % (Auto) 7.5 (0.0-11.0) % Eos % (Auto) 1.6 (0.0-7.0) % Baso % (Auto) 0.1 (0.0-3.0) % Neut # (Auto) 4.84 (1.7-7.0) K/uL Lymph # (Auto) 2.05 (0.90-2.90) K/uL [place] # (Auto) 0.60 (0.00-0.90) K/UL Eos # (Auto) 0.12 (0.00-0.50) K/uL Baso # (Auto) 0.01 (0.00-0.30) K/uL Abs Immat Gran (auto) 0.01 (0.00-0.30) K/uL Imm/Tot Granulo (auto) 0.1 % Sodium 134 L (135-149) mmol/L Potassium 3.9 (3.6-5.1) mmol/L Chloride 100 (96-114) mmol/L Carbon Dioxide 24 (20-32) mmol/L Anion Gap 10 (7-15) mEq/L BUN 15 (7-30) mg/dL Creatinine 0.6 (0.5-1.5) mg/dL Estimated GFR 96 ml/min Glucose 122 H (60-115) mg/dL Lactate 1.3 (0.5-1.9) mmol/L Calcium 9.4 (8.4-10.6) mg/dL Total Bilirubin 0.6 (0.1-1.5) mg/dL AST 23 (12-35) U/L ALT 19 (4-35) U/L Alkaline Phosphatase 78 (40-150) U/L C-Reactive Protein < 0.5 L (0.5-1.0) mg/dL Total Protein 7.7 (6.0-8.3) g/dL Albumin 4.7 (3.3-5.0) g/dL Lipase 56 (23-300) U/L SARS-CoV-2 (PCR) Negative SARS-CoV-2 (Negative) Influenza Type A (PCR) Negative PCR FLU A (Negative) Influenza Type B (PCR) Negative PCR FLU B (Negative) RSV (PCR) Negative PCR RSV (Negative) POC Troponin I 0.00 L 0.00 L (0.01-0.04) ng/ml Imaging Data CT Chest/Ab/Pelvis: Attestation: I have reviewed the pertinent imaging results. Radiologist's impression: Heart is normal in size without pericardial effusion. 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 Main pulmonary artery is borderline dilated at 29 millimeters. There is no mediastinal mass or lymphadenopathy. Scattered pulmonary nodules, the largest of which averages 6 millimeters within the right middle lobe. There is no focal consolidation pleural effusion or pneumothorax. Abdomen and pelvis: Subcentimeter hypodensity within the left lobe of the liver is too small to characterize. The gallbladder, spleen, adrenal glands, pancreas and kidneys are unremarkable. Urinary bladder is grossly unremarkable. There are no pelvic cysts or masses. The appendix is normal. There is no focal bowel wall thickening, bowel obstruction or inflammatory stranding about the hollow viscera. Few scattered colonic diverticula are present. The abdominal aorta and its major branches are patent and normal in caliber. There is no ascites, free air or lymphadenopathy. Soft tissues and bones: Soft tissues are unremarkable. Degenerative changes are present within the shoulders, hips and spine. Impression: 1. Multiple sub 6 millimeter pulmonary nodules or hilar statistically benign. Per Fleischner criteria if the patient is at increased risk for malignancy, consider follow-up chest CT in 1 year. 2. No acute findings or CT findings to explain given history. ECG Data Attestation: I personally reviewed and interpreted this ECG as follows: Interpretation: EKG by my read shows sinus bradycardia at a rate of 57. Do not note any acute ST or T-wave changes. QT and ND intervals normal. Discharge Plan Discharge Clinical Impression: Atypical chest pain, Abdominal pain Patient Disposition: Home, Self-Care Condition: Improved Additional Instructions: Recommend use of omeprazole 20 mg daily or Pepcid [id number] 1 tablet every 12 hours while you are awaiting her GI consult. Please return to the emergency room for worsening symptoms. Prescriptions: No Action multivitamin [Multiple Vitamins] Tablet 1 tab PO QDAY hydrochlorothiazide 12.5 mg tablet 12.5 mg PO QDAY Patient Comments: TAKE ONE TABLET BY MOUTH ONE TIME DAILY lisinopril 20 mg tablet 20 mg PO QDAY Patient Comments: TAKE ONE TABLET BY MOUTH ONE TIME DAILY (DME) Contour Next Test Strips Strip See Rx Instructions .ROUTE .MEDSUPPLY Qty: 10 Patient Comments: use to Test 3 times per day Rx Instructions: As directed lidocaine 5 % adhesive patch,medicated 1 patch topical DAILY Qty: 15 0RF Rx Instructions: leave on most painful area for up to 12 hrs lisinopril 5 mg tablet 5 mg PO DAILY cyclobenzaprine 5 mg tablet 5 mg PO BID PRN (Reason: muscle spasm) azithromycin 250 mg tablet See Rx Instructions PO .COMPLEX Qty: 6 0RF Rx Instructions: For 250 mg dose pack: take 500 mg today (day 1), then 250 mg for 4 days (days 2-5) PO Follow Up/Referrals: Eliana Guaman MD [Primary Care Provider] - Stand Alone Forms: MyHealth Info Instructions
--- NOTE | 2023-08-24 13:11 | CRLHL7_ITS ---
For Patients: As a result of the Century Cures Act, medical imaging exams and procedure reports are released immediately into your electronic medical record. You may view this report before your referring provider. If you have questions, please contact your health care provider. Indication: Pain Technique: Chest 1 view Comparison: None Findings/Impression: Cardiovascular and mediastinum: Upper normal heart size with aortic tortuosity and atherosclerotic calcification. Lungs and pleural space: No pleural effusion or pneumothorax. Scattered areas of discoid atelectasis within the lower lungs. Bones and soft tissues: No acute findings. Dictated by Kike Santiago MD @ 08/24/2023 1:41:46 PM (Electronically Signed)
--- NOTE | 2023-08-24 13:11 | CRLHL7_ITS ---
For Patients: As a result of the Century Cures Act, medical imaging exams and procedure reports are released immediately into your electronic medical record. You may view this report before your referring provider. If you have questions, please contact your health care provider. Indication: Burning sensation in abdomen Technique: Abdomen 1 view, 2 films Comparison: None Findings/Impression: Bowel: Borderline diameter loops of small bowel within the mid abdomen. Small amount of air within the descending colon and rectum. Question small bowel obstruction although the differential would include an enteritis. Soft tissues: No sign of free air. No sign of soft tissue mass. No suspicious calcifications. Bones: Degenerative disc disease lumbar spine. Dictated by Kike Santiago MD @ 08/24/2023 1:43:41 PM (Electronically Signed)
[2023-08-24 13:22] LABS: Lactate* 1.3 mmol/L (0.5-1.9)
[2023-08-24 13:23] LABS: Basophils Absolute Auto 0.01 K/uL (0.00-0.30); Basophils Percent Auto 0.1 % (0.0-3.0); Eosinophils Absolute Auto 0.12 K/uL (0.00-0.50); Eosinophils Percent Auto 1.6 % (0.0-7.0); Hematocrit 43.4 % (33.0-51.0); Hemoglobin* 14.5 gm/dL (12.0-16.0); Immature Granulocytes Abs Auto 0.01 K/uL (0.00-0.30); Immature Granulocytes Pct Auto 0.1 %; Lymphocytes Absolute Auto 2.05 K/uL (0.90-2.90); Mean Corpuscular HGB Conc 33 gm/dL (32-36); Mean Corpuscular Hemoglobin 29 pg (26-34); Mean Corpuscular Volume 88 fL (80-100); Monocytes Percent Auto 7.5 % (0.0-11.0); Neutrophils Absolute Auto 4.84 K/uL (1.7-7.0); Neutrophils Percent Auto 63.7 % (42.0-72.0); Platelet Count* 280 K/uL (140-440); RDW Coefficient of Variation % 12.8 % (11.5-15.5); Red Blood Count 4.93 m/uL (4.00-5.20)
--- OUTSIDE RECORDS SUMMARY | 2023-08-24 13:28 | XMS_ITS | Clinical Summary ---
Author Organization [facility] Address [place], [place] [address] Care Team Providers Care Bonbon Cream Warmer Name Role Phone Eliana Guaman MD Primary Care Provider Allergies Active Allergy Reactions Criticality Noted Date Comments Amoxicillin Rash 05/23/2021 Diatrizoate Allergen Hives Low 10/13/2007 PT CAN BE PREMEDICATED FOR IV CONTRAST Medications Medication Sig Dispensed Refills Start Date End Date Status multivitamin (MVI) tablet Take 1 tablet by mouth once daily. 0 03/25/2016 Active cholecalciferol (Vitamin D-3) 2,000 unit capsule Take 1 Capsule (2,000 units) by mouth once daily. 0 11/19/2021 Active Microlet LancetIndications:Imp aired fasting glucose TEST BLOOD SUGAR ONCE DAILY 100 Each 3 03/24/2022 Active sennosides-docusate (SENOKOT S) (8.6-50 mg) tabletIndications:Hia mercedes hernia Take 1 Tablet by mouth 2 times daily if needed for Constipation. 20 Tablet 11/28/2022 Active fluticasone (50 mcg per actuation) nasal solution (FLONASE)Indications: Chronic sinusitis, unspecified location,Nasal congestion Inhale 2 Sprays into affected nostril(s) once daily. 48 g 2 04/03/2023 Active cyanocobalamin (Vitamin B-12) 1,000 mcg tabletIndications:Vit gan B12 deficiency Take 1 Tablet (1,000 mcg) by mouth once daily. 90 Tablet 1 06/10/2023 Active hydroCHLOROthiazide 12.5 mg tabletIndications:Diana laughlin hypertension Take 1 Tablet (12.5 mg) by mouth once daily. 90 Tablet 3 06/10/2023 Active lisinopriL (PRINIVIL; ZESTRIL) 5 mg tabletIndications:Diana laughlin hypertension Take 1 Tablet (5 mg) by mouth once daily. 90 Tablet 3 06/10/2023 Active Blood-Glucose Meter (Contour Next One Meter)Indications:Imp aired fasting glucose Dispense glucose meter, test strips and lancets covered by the patient insurance. Test 1 times per day. 1 Kit 06/10/2023 Active blood sugar diagnostic (Contour Next Test Strips) stripIndications:Type 2 diabetes mellitus with obesity (HC) use to Test 3 times per day 300 Each 3 06/10/2023 Active cyclobenzaprine (FLEXERIL) 5 mg tabletIndications:[address] wall tenderness,Chronic bilateral low back pain, unspecified whether sciatica present Take 1 Tablet (5 mg) by mouth 2 times daily if needed for Muscle Spasm. 20 Tablet 06/10/2023 Active Active Problems Problem Noted Date Diagnosed Date Diabetes mellitus type 2 in obese 03/11/2023 Multiple thyroid nodules 12/19/2022 Overview: On ultrasound 12/19/2022. Needs follow up 11/2023 Depression, recurrent 12/16/2022 Hiatal hernia 12/02/2022 Primary osteoarthritis of left knee 03/30/2019 Overview: March 2019: cortisone injection by Dr. Zuluaga. 75% benefit. Caused very high blood sugars and 1.5 months of relief. August 2019: Synvisc ONE injection. May 02, 2020: Ultrasound guided Synvisc ONE injection. Subclinical hypothyroidism 01/27/2019 Diabetes mellitus, new onset 10/29/2018 Overview: A1c 7.0 on 10/29/2018 Vitamin D deficiency 05/19/2014 Impaired fasting glucose 08/01/2009 Menopause 10/25/2008 Unspecified hypothyroidism 10/25/2008 HTN (hypertension) 10/13/2007 Overview: Updated by system to replace inactive record Resolved Problems Problem Noted Date Diagnosed Date Resolved Date Body mass index (BMI) of 40.0-44.9 in adult 10/29/2018 05/14/2023 Encounters Date Type Department Care Team Description 07/22/2023 2:45 PM CDT Orders Only [facility] [address] [facility] [address] [facility], [place] [facility] 07/21/2023 Travel 06/10/2023 7:55 AM CDT Office Visit [facility] [address] [place] [address] Eliana Guaman MD Medicare ANNUAL (subsequent) Visit (72 year old); Diabetes 06/10/2023 Telephone [facility] [address] [place] [address] Eliana Guaman MD Pharmacist Medication Management (Testing supplies) 06/10/2023 Travel 06/08/2023 Travel from Last 3 Months Immunizations Name Administration Dates Next Due Influenza, High-dose Quadriv alent Inactivated 11/06/2022,01/10/2022 Influenza, IIV3 (Age >=3 years) 12/11/19 15,10/19/2013,12/07/2012,2011 Influenza, Inactivated AIIV4 (Age 65+ Years) Preserv Free 11/09/2020 Pneumococcal Poly,23-Valent (Pneumovax) 10/29/2011 Pneumococcal conj 13-Valent (Prevnar 13) 10/28/2017 Td (Age >=7 Years) 03/28/1999 Tdap 07/23/2022,04/12/2010 Tuberculin (PPD) 11/25/2006, 5,01/12/2003,2001,02/11/2001,07/22/2000,03/28/1999 Family History Medical History Relation Name Comments Cancer Father lung and tongue Cancer-pancreatic Father Diabetes Father Heart Disease Father Hyperlipidemia Father Hypertension Father Diabetes Maternal Aunt Diabetes Maternal Grandmother Heart Disease Mother Hyperlipidemia Mother Hypertension Mother Cancer-breast Paternal Aunt Diabetes Paternal Aunt Heart attack Sister Thyroid Disease Sister hypothyroidi sm Cancer-colon No Family History Cancer-ovarian No Family History Relation Name Status Comments Father Maternal Aunt Maternal Grandmother Mother (Age 77) AAA Paternal Aunt Sister Social History Tobacco Use Types Packs/Day Years Used Date Smoking Tobacco: Former Cigarettes 1 7 0 02/24/1971 - 02/24/1978 Smokeless Tobacco: Never Tobacco Cessation:Counseling Given: Yes Alcohol Use Standard Drinks/Week Comments No 0 (1 standard drink = 0.6 oz pur e alcohol) rarely Humiliation, Afraid, Rape, and Kick questionnair e Answer Date Recorded Fear of Current or Ex-Partner No Emotionally Abused No 10/29/2018 Physically Abused No 10/29/2018 Sexually Abused No 10/29/2018 PHQ-2 Answer Date Recorded PHQ-2 TOTAL SCORE 0 06/10/2023 [facility] [place] [facility] - Occupational Stress Questionnaire Answer Date Recorded Feeling of Stress Not at all 10/29/2018 Exercise Vital Sign Answer Date Recorde d Days of Exercise per Week 0 days 2018 Minutes of Exercise per Session 0 min 10/29/2018 Social Connections Answer Date Recorded Frequency of Communication with Friends and Fami ly 0 08/27/2022 Financial Resource Strain Answer Date R ecorded Difficulty of Paying Living Expenses 3 08/27/2022 Difficulty of Paying Living Expenses Not on file 08/27/2022 Food Insecurity Answer Date Recorded Worried About Running Out of Food in the Last Ye ar 1 08/27/2022 Transportation Needs Answer Date Record ed Lack of Transportation (Medical) 1 08/27/2022 Housing Stability Answer Date Recorded Unable to Pay for Housing in the Last Year 1 08/27/2022 Sex and Gender Information Value Date Recorded Sex Assigned at Female 09/02/2019 11:18 PM CDT Gender Identity Female 09/02/2019 11:18 PM CDT Sexual Orientation Straight 09/02/2019 11 :18 PM CDT Obstetrics History Para Term AB IAB SAB Ectopic Multiple Livin g Live Births 3 1 1 2 2 1 Date Outcome GA Total Labor Labor/2nd/3rd Weight Sex Type Anes PTL Bren A1 A5 Name Clin Term SAB SAB Last Filed Vital Signs Vital Sign Reading Time Taken Comments Blood Pressure 126/82 06/10/2023 8:07 AM CDT Pulse 51 06/10/2023 8:07 AM CDT Temperature 36.3 ??C (97.3 ??F) 02/12/2023 6:26 PM CS T Respiratory Rate 18 02/12/2023 6:26 PM CHILD CUSTODY EVALUATOR Oxygen Saturation 97% 06/10/2023 8:07 AM CDT Inhaled Oxygen Concentration - - Weight 97.1 kg (214 lb) 06/10/2023 8:07 AM CDT Height 155.8 cm (5' 1.34) 06/10/2023 8:07 AM CD T Body Mass Index 39.99 06/10/2023 8:07 AM CDT Plan of Treatment Upcoming Encounters Date Type Department Care Team (Late st Contact Info) Description 12/10/2023 8:15 AM CDT Ancillary Procedure [facility] [address] [place] [address] 12/10/2023 9:10 AM CDT Office Visit [facility] [address] [place] [address] Eliana Guaman MD [address] [place] [address] Health Maintenance Due Date Last Done Comments Zoster (shingles) series for age 50+ (1 of 2) 11/03/2001 Pneumococcal series for age 65+ (3 of 3 - PPSV23 or PCV20) 10/28/2018 10/28/2017, 10/29/2011 COVID-19 vaccine series ( season) 2023 03/03/2023, 12/28/2020, 05/31/2020 Influenza for age 65+ 10/25/2023 11/06/2022 , 01/10/2022, 11/09/2020, Additional history exists Mammogram for age 45-75 04/01/2024 04/01/19 24, 10/25/2021, 06/19/2020, Additional history exists BMI (ht and wt on same day) for age 18+ 06/09/2024 06/10/2023, 12/16/2022, 2022, Additional history exists Depression screening for age 12+ 06/09/2024 06/10/2023, 06/10/2023, 12/18/2022, Additional history exists Medicare Wellness for age 65+ 06/10/2024, 06/10/2022, 05/23/2021, Additional history exists Fecal testing sDNA-FIT (Cologuard) for age 45-75 01/13/2026 01/13/2023 Lipids for age 45-75 06/09/2028 06/10/2023, 06/10/2022, 05/23/2021, Additional history exists Tetanus booster 07/23/2032 07/23/2022, 03/26, 03/28/1999 Hepatitis C screening for ag e 18-79 Completed 04/01/2013 Fecal testing non-DNA (FIT,FOBT,iFOBT) for age 45-75 Discontinued 11/07/2021, 01/27/2020, 11/26/2018, Additional history exists DEXA/DXA scan for age 65+ Completed 06/12/2022, Tdap Completed 07/23/2022, 04/12/2010 Goals Goal Patient Goal Type Associated Problems Recent Progress Patient-Stated? Author BLOOD PRESSURE - MAINTAINS BP less than 140/90 Blood Pressure No Caitlin Grover Procedures Procedure Name Priority Date/Time Associated Diagnosis Comments TSH Routine 07/22/2023 2:47 PM CDT Subclinical hypothyroidism AMB CONSULT TO GASTROENTEROLOGY Routine 07/03/2023 7:54 PM CDT History of hiatal hernia S/P laparoscopic fundoplication Early satiety T4,FREE Routine 06/10/2023 8:55 AM CDT Subclinical hypothyroidism LIPID PANEL W REFLEX MEASURED LDL Routine 06/10/2023 8:55 AM CDT Hyperlipidemia, unspecified hyperlipidemia type TSH WITH REFLEX Routine 06/10/2023 8:55 AM CDT Subclinical hypothyroidism BASIC METABOLIC PANEL Routine 06/10/2023 8:55 AM CDT Hypertension, unspecified type HEMOGLOBIN A1C Routine 06/10/2023 8:55 AM CDT Diabetes mellitus type 2 in obese XR MAMMO SEKOU BILAT SCREEN Routine 04/01/2023 10:45 AM CHILD CUSTODY EVALUATOR Visit for screening mammogram SDNA-FIT EXTERNAL (COLOGUARD) Routine 01/13/2023 8:15 AM CHILD CUSTODY EVALUATOR Screening for colon cancer XR DXA BONE DENSITY 2 SITES AXIAL Routine 06/12/2022 10:40 AM CDT Menopause OCCULT BLOOD IFOBT STOOL Routine 11/07/2021 12:54 PM CDT Screening for colon cancer ANTI HCV Routine 04/01/2013 9:48 AM CHILD CUSTODY EVALUATOR Need for hepatitis C screening test from Last 3 Months or Most Recently Relevant to Health Maintenance Results * TSH (07/22/2023 2:47 PM CDT) TSH 2.44 0.27 - 4.20 uIU/mL 07/22/2023 10:31 PM CDT [facility] Blood BLOOD SPECIMEN / Unknown Venipuncture / Unknown 07/22/2023 2:47 PM CDT 07/22/2023 2:[address] [facility] - 07/22/2023 10:31 PM CDT In Adults, TSH values between 5.00 and 10.00 uIU/ml do not necessarily indicate the presence of Hypothyroidism. Correlation with clinical findings such as presence of goiter and/or Thyroperoxidase (TPO) Antibody may be helpful. For more information please refer to GARY 2004; 291: 228-238. Eliana Guaman MD CHEMISTRY [facility] [address] [place] [address], * (ABNORMAL) TSH WITH REFLEX (06/10/2023 8:55 AM CDT) TSH 4.89(H) 0.27 - 4.20 uIU/mL 06/10/2023 5:21 PM CDT [facility] Blood BLOOD SPECIMEN / Unknown Venipuncture / Unknown 06/10/2023 8:55 AM CDT 06/10/2023 8:57 AM CDT Narrative [facility] - 06/10/2023 5:21 PM CDT In Adults, TSH values between 5.00 and 10.00 uIU/ml do not necessarily indicate the presence of Hypothyroidism. Correlation with clinical findings such as presence of goiter and/or Thyroperoxidase (TPO) Antibody may be helpful. For more information please refer to GARY 2004; 291: 228-238. Eliana Guaman MD CHEMISTRY [facility] [address] [place] [address], * (ABNORMAL) LIPID PANEL W REFLEX MEASURED LDL (06/10/2023 8:55 AM CDT) CHOLESTEROL,TOTAL 264(H) 100 - 199 mg/dL 06/10/2023 5:11 PM CDT [facility] Comment: Cholesterol, Total Reference Ranges Desirable <200 mg/dL Borderline 200-239 mg/dL High >=240 mg/dL TRIGLYCERIDES 103 <150 mg/dL 06/10/2023 5:11 PM CDT [facility] HDL CHOLESTEROL 74 >40 mg/dL 5:11 PM CDT [facility] NON-HDL CHOLESTEROL 190(H) <145 mg/dl 06/10/2023 5:11 PM CDT [facility] CHOL/HDL RATIO 3.57 <4.50 06/10/2023 5:11 PM CDT [facility] LDL CHOLESTEROL 169(H) <=130 mg/dL 06/10/2023 5:11 PM CDT [facility] VLDL CHOLESTEROL 21 <=30 mg/dL 06/10/2023 5:11 PM CDT [facility] PROVIDER ORDERED STATUS RANDOM 06/10/2023 5:11 PM CDT [facility] Blood BLOOD SPECIMEN / Unknown Venipuncture / Unknown 06/10/2023 8:55 AM CDT 06/10/2023 8:57 AM CDT Eliana Guaman MD CHEMISTRY [facility] [address] [place] [address], * T4,FREE (06/10/2023 8:55 AM CDT) T4,FREE 1.40 0.93 - 1.70 ng/dL 06/10/2023 5:56 PM CDT [facility] Blood BLOOD SPECIMEN / Unknown Venipuncture / Unknown 06/10/2023 8:55 AM CDT 06/10/2023 8:57 AM CDT Eliana Guaman MD CHEMISTRY Performing Organization Address [facility] Co de Phone Number [facility] [address] [place] [address], * HEMOGLOBIN A1C MONITORING (POCT) (06/10/2023 8:55 AM CDT) Pathologist [facility] HEMOGLOBIN A1C MONITORING (POCT) 6.1 <=6.4 % 06/10/2023 9:06 AM CDT [facility] Blood BLOOD SPECIMEN / Unknown Venipuncture / Unknown 06/10/2023 8:55 AM CDT 06/10/2023 8:57 AM CDT Narrative [facility] - 06/10/2023 9:06 AM CDT ? (<=6.9%) ? Indicates good control ? (7.0% to 7.9%) ? Indicates fair control ? (>=8.0%) ? Indicates poor control ?? NOTE: ??These thresholds are guidelines and ?individual targets may vary. Falsely low levels may be seen with: Recent Transfusion, Recent Significant Blood Loss, Hemolytic Diseases, or Falsely elevated levels may be seen with: Untreated Anemias, Splenectomy ? Eliana Guaman MD CHEMISTRY [facility] [address] [place] [address], * (ABNORMAL) BASIC METABOLIC PANEL (06/10/2023 8:55 AM CDT) SODIUM 141 136 - 145 mmol/L 06/10/2023 5:11 PM CDT [facility] POTASSIUM 4.4 3.5 - 5.1 mmol/L 06/10/2023 5:11 PM CDT [facility] CHLORIDE 102 98 - 107 mmol/L 06/10/2023 5:11 PM CDT [facility] CO2,TOTAL 28 22 - 29 mmol/L 06/10/2023 5:11 PM CDT [facility] ANION GAP 11 5 - 18 06/10/2023 5:11 PM CDT [facility] GLUCOSE 121(H) 70 - 99 mg/dL 06/10/2023 5:11 PM CDT [facility] CALCIUM 9.8 8.8 - 10.2 mg/dL 06/10/2023 5:11 PM CDT [facility] BUN 13 8 - 23 mg/dL 06/10/2023 5:11 PM T [facility] CREATININE 0.80 0.50 - 0.90 mg/dL 06/10/2023 5:11 PM T [facility] BUN/CREAT RATIO 16 10 - 20 5:11 PM T [facility] eGFR 79(L) >90 mL/min/1.7 3m2 06/10/2023 5:11 PM CDT [facility] Comment:As of 2021, eG FR is calculated by the CKD-EPI creatinine equation without race adjustment. ??eGFR can be influenced by muscle mass, exercise, and diet. ??The reported eGFR is an estimation only and is only applicable if the renal function is stable. Blood BLOOD SPECIMEN / Unknown Venipuncture / Unknown 06/10/2023 8:55 AM CDT 06/10/2023 8:57 AM CDT Eliana Guaman MD CHEMISTRY [facility] [address] [place] [address], * XR MAMMO SEKOU BILAT SCREEN (04/01/2023 10:45 AM CHILD CUSTODY EVALUATOR) Anatomical Region Laterality Modality BREASTS, Breast Left, Breast Right Bilateral Mammography Impressions 04/01/2023 2:10 PM CHILD CUSTODY EVALUATOR ??There is no radiographic evidence for malignancy. ??Recommend annual mammograms. MAMMOGRAM ASSESSMENT: ??ACR 1 Negative PATIENTS: You will also receive a letter with your examination results in an easy to read format. ??If you have questions about your results, please contact your referring provider. Narrative 04/01/2023 2:10 PM CHILD CUSTODY EVALUATOR For Patients: As a result of the Century Cures Act, medical imaging exams and procedure reports are released immediately into your electronic medical record. You may view this report before your referring provider. If you have questions, please contact your health care provider. XR MAMMO SEKOU BILAT SCREEN [[id number]] CLINICAL HISTORY: ??This is an asymptomatic 72 y.o. patient. INDICATION FOR EXAM: Mammogram Screening. TECHNIQUE: CC & MLO views were obtained. ??This study was evaluated with the assistance of Computer-Aided Detection. Breast Tomosynthesis was used in interpretation. COMPARISON FILM: Yes 10/25/21 [facility] 06/19/20 [facility] FINDINGS: ??The breasts are almost entirely fatty. There are no dominant masses, suspicious micro calcifications or areas of architectural distortion. Eliana Guaman MD MAMMO * SDNA-FIT EXTERNAL (COLOGUARD) (01/13/2023 8:15 AM CHILD CUSTODY EVALUATOR) NONINV COLON CA DNA+OCC BLD SCRN STL-IMP Negative Negative 01/23/2023 12:23 PM CHILD CUSTODY EVALUATOR [facility] (CLIA #:[id number]) Comment: NEGATIVE TEST RESULT. A negative Cologuard result indicates a low likelihood that a colorectal cancer (CRC) or advanced adenoma (adenomatous polyps with more advanced pre-malignant features) ??is present. The chance that a person with a negative Cologuard test has a colorectal cancer is less than 1 in 1500 (negative predictive value >99.9%) or has an ??advanced adenoma is less than ??5.3% (negative predictive value 94.7%). These data are based on a prospective cross-sectional study of 10,000 individuals at average risk for colorectal cancer who were screened with both Cologuard and colonoscopy. (Iain Ames. et al, N Engl J Med 2014;370(14):1286- 1297) The normal value (reference range) for this assay is negative. COLOGUARD RE-SCREENING RECOMMENDATION: Periodic colorectal cancer screening is an important part of preventive healthcare for asymptomatic individuals at average risk for colorectal cancer. ??Following a negative Cologuard result, the [place] [employer] Society and U.S. Multi-Society Task Force screening guidelines recommend a Cologuard re-screening interval of 3 years. References: [place] [employer] Guideline for Colorectal Cancer Screening: https://www.cancer.org/cancer/xofrd-qmtomv-olqran/jcfbefpvo-omkitiulj-nkavqsd/ac s-rec ommendations.html.; Derrick MELENDEZ, Tata HERNANDEZ, Killian DobsonK, Colorectal Cancer Screening: Recommendations for Physicians and Patients from the U.S. Multi-Society Task Force on Colorectal Cancer Screening , Am J Gastroenterology 2017; 112:6444-3461. TEST DESCRIPTION: Composite algorithmic analysis of stool DNA-biomarkers with hemoglobin immunoassay. ?? Quantitative values of individual biomarkers are not reportable and are not associated with individual biomarker result reference ranges. Cologuard is intended for colorectal cancer screening of adults of either sex, 45 years or older, who are at average-risk for colorectal cancer (CRC). Cologuard has been approved for use by the U.S. FDA. The performance of Cologuard was established in a cross sectional study of average-risk adults aged 50-84. Cologuard performance in patients ages 45 to 49 years was estimated by sub-group analysis of near-age groups. Colonoscopies performed for a positive result may find as the most clinically significant lesion: colorectal cancer [4.0%], advanced adenoma (including sessile serrated polyps greater than or equal to 1cm diameter) [20%] or non- advanced adenoma [31%]; or no colorectal neoplasia [45%]. These estimates are derived from a prospective cross-sectional screening study of 10,000 individuals at average risk for colorectal cancer who were screened with both Cologuard and colonoscopy. (Iain Woods et al, N Engl J Med 2014;370(14):1248-2781.) Cologuard may produce a false negative or false positive result (no colorectal cancer or precancerous polyp present at colonoscopy follow up). A negative Cologuard test result does not guarantee the absence of CRC or advanced adenoma (pre-cancer). The current Cologuard screening interval is every 3 years. ([place] [employer] Society and U.S. Multi-Society Task Force). Cologuard performance data in a 10,000 patient pivotal study using colonoscopy as the reference method can be accessed at the following location: www.[employer]/results. Additional description of the Cologuard test process, warnings and precautions can be found at www.[employer].com. Stool specimen (specimen) (Rectum) 01/13/2023 8:15 AM CHILD CUSTODY EVALUATOR 01/14/2023 4:57 PM CHILD CUSTODY EVALUATOR Eliana Guaman MD URINE [facility] (CLIA #:[id number]) [place] [address], * XR DXA BONE DENSITY 2 SITES AXIAL (06/12/2022 10:40 AM CDT) Anatomical Region Laterality Modality Spine, HIPS, HIPL, HIPR Other Impressions 06/17/2022 2:16 PM CDT Normal bone density. RECOMMENDATIONS: The National Osteoporosis Foundation recommends pharmacologic treatment for patients with T-scores of -2.5 or less, patients with prior history of fragility fractures, or patients with 10-year probability of greater than 3% at hips or greater than 20% of suffering major osteoporotic fractures. Recommend continued optimization of calcium and vitamin D intake through dietary means and/or supplementation and regular exercise. Repeat scan recommended in 3-5 years. Arlin Power PA-C [facility] 06/17/2022 Narrative 06/17/2022 2:16 PM CDT For Patients: Results are automatically released to your [facility]) account once available, in compliance with federal regulations. This means that you may see your results before your provider has had a chance to review them. Please allow 2-3 business days for your provider to comment on the results. XR DXA Bone Mineral Density (BMD) EXAM LOCATION: [facility] [address] [facility] [address] PATIENT NAME: Gabby Shrestha DATE OF : 1950 EXAM DATE: 06/12/2022 REQUESTING PROVIDER: Eliana Guaman MD GENDER AT : female HEIGHT: 5' 1.14 (06/10/2022) WEIGHT: ??218 lb 12.8 oz (06/10/2022) MENOPAUSAL STATUS: Postmenopausal RACE/ETHNICITY: White RISK FACTORS: Smoking (prior) and White Race CURRENT MEDICATION FOR BONE LOSS: NONE INDICATION: Menopause COMPARISON DATE(S): 2014 DXA scans are compared to prior studies for a patient only when the two (or more) studies were performed on the same scanner. It is not possible to compare data generated on one scanner to data from another because there are not standards in DXA equipment. This applies even if the two scanners are made by the same genetic scientist. PROCEDURE: Dual-energy x-ray absorptiometry performed with routine technique. Reporting is completed in the form of a T-score. The T-score represents the standard deviation from peak bone mass based on young healthy adult. A Z-score is used for diagnosis in premenopausal women, and for men under the age of 50. FINDINGS: RESULT LUMBAR SPINE L2 - L4 ??(EXCLUDE L1) BMD: 1.688 g/cm2 T-Score: + 3.8 Z-Score: + 4.3 Change from prior in 2015: ??Increase 0.2%. RESULTS FEMUR Left femoral neck BMD: 1.226 g/cm2 T-Score: + 1.4 Z-Score: + 2.3 Change from prior in 2015: ??Decrease 4.7%. Right femoral neck BMD: 1.161 g/cm2 T-Score: + 0.9 Z-Score: + 1.9 Change from prior in 2015: ??Decrease 3.6%. Left hip BMD: 1.356 g/cm2 T-Score: + 2.8 Z-Score: + 3.4 Change from prior in 2015: ??Decrease 6.3%. Right hip BMD: 1.322 g/cm2 T-Score: + 2.5 Z-Score: + 3.2 Change from prior in 2015: ??Decrease 6.2%. WHO criteria: Normal: T-score at or above -1 SD Osteopenia: T-score between -1.1 and -2.4 SD Osteoporosis: T-score at or below -2.5 SD Eliana Guaman MD DEXA * OCCULT BLOOD IFOBT STOOL (11/07/2021 12:54 PM CDT) STOOL BLOOD ,IFOBT Negative Negative 11/13/2021 1:50 PM CDT [facility] Stool STOOL SPECIMEN / Unknown Non-Blood / Unknown 11/07/2021 12:54 PM CDT 11/12/2021 12:54 PM CDT Eliana Guaman MD LABORATORY [facility] [address] [phone] * ANTI HCV [43308.2] (04/01/2013 9:48 AM CHILD CUSTODY EVALUATOR) ANTI HCV Non-reacti ve [facility] Blood specimen (specimen) BLOOD SPECIMEN / Unknown 04/01/2013 9:48 AM CHILD CUSTODY EVALUATOR 04/01/2013 9:39 AM CHILD CUSTODY EVALUATOR Caitlin Grover SEND OUTS [facility] INTERNAL ZIP [id number] [place] [id number] from Last 3 Months or Most Recently Relevant to Health Maintenance Advance Directives * Full Code (Latest Code Status on File) Date Activated Date Inactivated Comments 11/28/2022 8:02 AM 11/28/2022 9:29 PM Question Answer Comments Code Status Discussion: Unable to Assess Preferences, Provider to review later Care Teams [employer] Relationship Specialty Start Date End Date Eliana Guaman MD [address] [place] [address] PCP - General Family Practice 04/07/17
[2023-08-24 13:30] LABS: Slide Review Reflex No
[2023-08-24] MEDS: 0.9 % SODIUM CHLORIDE 1000 ml 1,000 ML IV (13:30)
[2023-08-24 13:40] LABS: Albumin* 4.7 g/dL (3.3-5.0); Chloride* 100 mmol/L (96-114)
[2023-08-24 13:41] LABS: Potassium* 3.9 mmol/L (3.6-5.1); Sodium* 134 mmol/L (135-149)
[2023-08-24 13:43] LABS: Creatinine* 0.6 mg/dL (0.5-1.5); Estimated Glomerular Filt Rate 96 ml/min
[2023-08-24 13:44] LABS: Alanine Aminotransferase* 19 U/L (4-35); Alkaline Phosphatase* 78 U/L (40-150); Anion Gap 10 mEq/L (7-15); Aspartate Amino Transferase* 23 U/L (12-35); Bilirubin Total* 0.6 mg/dL (0.1-1.5); Blood Urea Nitrogen* 15 mg/dL (7-30); Carbon Dioxide* 24 mmol/L (20-32); Glucose* 122 mg/dL (60-115); Lipase* 56 U/L (23-300); Total Protein* 7.7 g/dL (6.0-8.3)
[2023-08-24 13:45] LABS: Calcium* 9.4 mg/dL (8.4-10.6)
[2023-08-24] MEDS: PANTOPRAZOLE SODIUM 40 MG INJ 80 MG IVP (13:51)
[2023-08-24] MEDS: diphenhydrAMINE 50 MG/ML inj 25 MG IVP (14:05)
[2023-08-24 14:10] LABS: C Reactive Protein* < 0.5 mg/dL (0.5-1.0)
[2023-08-24 14:13] LABS: PCR FLU A Negative PCR FLU A (Negative); PCR FLU B Negative PCR FLU B (Negative); PCR RSV Negative PCR RSV (Negative); SARS PCR* Negative SARS-CoV-2 (Negative)
--- NOTE | 2023-08-24 15:30 | CRLHL7_ITS ---
For Patients: As a result of the 21st Century Cures Act, medical imaging exams and procedure reports are released immediately into your electronic medical record. You may view this report before your referring provider. If you have questions, please contact your health care provider. Indication: Abdominal pain Technique: CT chest, abdomen and pelvis after the intravenous administration of contrast, 98 cc of Isovue [address] note that all CT scans at this facility use dose modulation, iterative reconstruction, and/or weight-based dosing when appropriate to reduce radiation dose to as low as reasonably achievable. Comparison: None Findings: Chest: Heart is normal in size without pericardial effusion. 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 Main pulmonary artery is borderline dilated at 29 millimeters. There is no mediastinal mass or lymphadenopathy. Scattered pulmonary nodules, the largest of which averages 6 millimeters within the right middle lobe. There is no focal consolidation pleural effusion or pneumothorax. Abdomen and pelvis: Subcentimeter hypodensity within the left lobe of the liver is too small to characterize. The gallbladder, spleen, adrenal glands, pancreas and kidneys are unremarkable. Urinary bladder is grossly unremarkable. There are no pelvic cysts or masses. The appendix is normal. There is no focal bowel wall thickening, bowel obstruction or inflammatory stranding about the hollow viscera. Few scattered colonic diverticula are present. The abdominal aorta and its major branches are patent and normal in caliber. There is no ascites, free air or lymphadenopathy. Soft tissues and bones: Soft tissues are unremarkable. Degenerative changes are present within the shoulders, hips and spine. Impression: 1. Multiple sub 6 millimeter pulmonary nodules or hilar statistically benign. Per Fleischner criteria if the patient is at increased risk for malignancy, consider follow-up chest CT in 1 year. 2. No acute findings or CT findings to explain given history. Please note that all CT scans at this facility use dose modulation, iterative reconstruction, and/or weight-based dosing when appropriate to reduce radiation dose to as low as reasonably achievable. Dictated by Foster Jimenez MD @ 08/24/2023 4:52:27 PM (Electronically Signed)
== END 2023-08-24 18:11 | disposition home or self-care (01) ==
PROVIDERS: Emergency Provider Family Medicine; PCP Family Medicine
DX: R07.9 Chest pain, unspecified (principal); R91.1 Solitary pulmonary nodule
CPT/HCPCS: 36415; 71045; 71260; 74018; 74177; 80053; 83605; 83690; 84484; 85025; 86140; 87631; 96365; 96366; 96375; 99284; J1200; J2470; J7030; Q9967

== ENCOUNTER 2024-06-03 09:14 | Outpatient (CLI) | payer MEDICARE, SELFPAY ==
--- NOTE | 2024-06-03 09:15 | CRLHL7_ITS ---
For Patients: As a result of the Century Cures Act, medical imaging exams and procedure reports are released immediately into your electronic medical record. You may view this report before your referring provider. If you have questions, please contact your health care provider. Technique: Single contrast water-soluble esophagram performed. Fluoroscopy time 0.39 minutes. Indication: previous hiatal hernia repair with recurrent regurgitation Comparison: 02/04/2023 Findings: Postop changes of partial Manoj fundoplication. No hiatal hernia or reflux. No esophageal inflammation. No stricture. No ulcer or diverticulum. No stricture. No obstruction to the flow of barium. No extravasation. Normal tolerance of barium tablet. Impression: Unremarkable exam. No recurrent hernia. Dictated by Smith Rivera MD @ 06/03/2024 11:19:49 AM (Electronically Signed)
== END 2024-06-03 09:15 | disposition home or self-care (01) ==
LOC: RAD 09:16
PROVIDERS: PCP Family Medicine; Visit Provider Registered Nurse Registered Nurse First Assistant
DX: R11.10 Vomiting, unspecified (principal); Z87.19 Personal history of other diseases of the digestive system
CPT/HCPCS: 74220